=== PATIENT | male | born 1980 | race Caucasian/White ===

== ENCOUNTER → 2019-11-13 12:33 | Outpatient (BNVA) | payer MEDICARE, MEDICAID, SELFPAY | PROVIDERS: Family Provider Nurse Practitioner; PCP Nurse Practitioner; Visit Provider Nurse Practitioner Family | DX: R09.89 Other specified symptoms and signs involving the circulatory and respiratory systems (principal); J10.1 Influenza due to other identified influenza virus with other respiratory manifestations; R05 Cough | CPT/HCPCS: 71046; 87804 ==

== ENCOUNTER 2019-11-21 12:28 | Emergency (ER) | payer MEDICARE, MEDICAID, SELFPAY ==
[2019-11-21 12:57] VITALS: BP 106/81; PULSE 98; RESP 22; TEMP 36.6; O2SAT 98; BMI 22.5
--- NOTE | 2019-11-21 13:06 | ED_ITS ---
Entered by Feroz Carr, acting as scribe for Espinoza Cota DO HPI - Dizziness General: Chief Complaint: Dizziness Stated Complaint: DIZZY Time Seen by Provider: 11/21/19 13:07 History of Present Illness: HPI Narrative: 39 yo male presents with dizziness. Pt states that his dizziness started 4 days ago. Pt states that he just got over the flu. Pt states that he has been at home. Pt states that he was getting ready to go cut some wood and he almost fell due to being dizzy. Pt states that laying on his back, moving his head side to side and being active makes his dizziness worse. Pt states that that his blood pressure is elevated and his heart rate has been low. MD elicited complaint: dizziness PFSH ED PFSH: Statuses (acute, chronic, etc) shown below reflect problem list status as previously entered and may not be historically accurate Medical History (Updated 11/21/19 @ 15:34 by Espinoza Cota DO) Arteriosclerotic heart disease (ASHD) (Acute) Depression (Acute) Fibromyalgia (Acute) Hepatitis B (Acute) Insomnia, unspecified (Acute) Mixed hyperlipidemia (Acute) Paget disease of bone (Acute) Polyneuropathy, unspecified (Acute) Unspecified osteoarthritis, unspecified site (Acute) Surgical History (Updated 11/21/19 @ 13:14 by Feroz Carr) Hx of angioplasty (Acute) Hx of appendectomy (Acute) Hx of colonoscopy (Acute ~01/2019) Family History (Updated 11/13/19 @ 10:32 by Maria M Song LPN, RT) Family/Other CAD (coronary artery disease) Anxiety Social History Smoking and tobacco status: never smoked Quit status (tobacco): has quit using tobacco Year quit tobacco: 2017 Former quit date comment: quit chewing Alcohol intake: never Lives independently: Yes Household members: spouse Marital status: History of recent travel: No Current gender identity: Male Physical Exam Const: COMMON NORMALS: no apparent distress, average body habitus, oriented x3, no limitations, healthy appearing, alert and well nourished HENMT: COMMON NORMALS: normocephalic, head/scalp atraumatic, hearing grossly normal bilaterally, external ears normal, EAC's normal, TM's normal bilaterally, external nose normal, nasal mucous membranes and turbinates normal, moist oral mucous membranes, oropharynx normal, dentition normal and gingiva normal HEAD & SCALP: normocephalic and atraumatic NOSE: external nose normal and nasal mucous membranes and turbinates normal EXTERNAL EAR: Yes external ears normal EXTERNAL AUDITORY CANAL: EAC's normal TYMPANIC MEMBRANE: TM's normal bilaterally Eye: COMMON NORMALS: PERRL, EOMs intact bilaterally, conjunctivae normal, no scleral icterus, no papilledema, normal visual zambrano by confrontation and fundi normal bilaterally CONJUNCTIVA: Yes conjunctivae normal PUPIL: Yes PERRL DIRECT OPHTHALMOSCOPY: Yes no papilledema and Yes fundi normal bilaterally Neck/C-Spine: COMMON NORMALS: full ROM, no lymphadenopathy, supple, no meningeal signs, no JVD, thyroid normal and no carotid bruits THYROID: thyroid normal Chest: COMMONS NORMALS: inspection of chest normal and palpation of chest normal Resp: COMMON NORMALS: normal respiratory effort, no retractions, no use of accessory muscles, clear to auscultation bilaterally and percussion normal AUSCULTATION: clear to auscultation bilaterally PERCUSSION: percussion normal Cardio: COMMON NORMALS: no JVD, regular rate, regular rhythm, S1 normal heart sound, S2 normal heart sound, no gallops, no clicks, no murmurs, no rub and peripheral pulses 2+ throughout RATE: regular rate RHYTHM: regular rhythm HEART SOUNDS: S1 normal and S2 normal PERIPHERAL PULSES: pulses 2+ throughout GI: COMMON NORMALS: normal to inspection, nondistended, normoactive bowel sounds, soft to palpation, non-tender, no hepatosplenomegaly, no masses and no bruits PALPATION: Yes soft and Yes no hepatosplenomegaly : COMMON NORMALS: Yes no CVA tenderness BLADDER/KIDNEY EXAM: Yes no CVA tenderness Back/Pelvis: COMMON NORMALS: no CVA tenderness, thoracic and lumbar spine normal to inspection, no thoracic nor lumbar tenderness, thoraco-lumbar ROM normal and straight leg raise negative bilaterally Extremity: COMMON NORMALS: normal to inspection, full ROM, normal capillary refill, no joint enlargement, no clubbing, cyanosis or edema, no calf tenderness and no pedal edema Neuro: COMMON NORMALS: oriented x3 SENSORIUM/ORIENTATION: Yes alert MENINGEAL SIGNS: Yes no meningeal signs Skin: COMMON NORMALS: no rashes or lesions noted, no wounds, skin turgor normal, no jaundice, no petechiae and no mottling GENERAL SKIN EXAM: no rashes or lesions noted and turgor normal Course Vital Signs: Vital signs: Vital Signs Temperature 97.9 F 11/21/19 12:57 Pulse Rate 98 11/21/19 12:57 Respiratory Rate 22 H 11/21/19 12:57 Blood Pressure 106/81 11/21/19 12:57 Pulse Oximetry 98 11/21/19 12:57 MDM - Dizziness Lab Data: Labs: Lab Results 11/21/19 11/21/19 11/21/19 Range/Units 14:30 14:30 14:30 WBC 6.6 (4.0-10.0) 10^3/ uL RBC 4.35 (4.1-5.3) 10^6/u L Hgb 13.1 (11.7-16.6) g/dL Hct 39.9 L (42.0-52.0) % MCV 91.7 (80-94) fL MCH 30.1 (28.0-34.0) pg MCHC 32.8 (30.0-36.0) g/dL RDW 12.7 (12.1-15.1) % Plt Count 241 (130-400) 10^3/c mm MPV 9.6 (7.4-10.4) fL Neut % (Auto) 54.0 % Lymph % (Auto) 34.5 % Gates % (Auto) 7.9 % Eos % (Auto) 2.3 % Baso % (Auto) 0.8 % Neut # (Auto) 3.6 (1.8-7.7) 10^3/u L Lymph # (Auto) 2.3 (0.8-4.8) 10^3/u L Gates # (Auto) 0.5 (0.2-0.9) 10^3/u L Eos # (Auto) 0.2 (0.0-0.8) 10^3/u L Baso # (Auto) 0.1 (0.0-0.1) 10^3/u L Nucleated RBC % (a uto) 0 % Nucleated RBCs # 0.0 /100WBC Sodium 135 L (136-145) mmol/L Potassium 4.1 (3.5-5.1) mmol/L Chloride 99 (98-107) mmol/L Carbon Dioxide 27 (22-29) mmol/L Anion Gap 13.1 (5-19) BUN 14 (6-20) mg/dL Creatinine 0.9 (0.7-1.2) mg/dL GFR Calculation 93.0 (90-130) mL/min Glucose 109 (74-109) mg/dL Lactate 1.0 (0.5-2.2) mmol/L Calcium 9.2 (8.5-10.5) mg/dL Total Bilirubin 0.3 (0.15-1.2) mg/dL AST 25 (0-40) U/L ALT 34 (0-41) U/L Alkaline Phosphata se 75 (40-130) IU/L Troponin T Baselin e (0-15) ng/mL Total Protein 6.9 (6.6-8.7) g/dL Albumin 3.9 (3.5-5.2) g/dL Globulin 3.0 (1.3-4.6) g/dL 11/21/19 Range/Units 14:30 WBC (4.0-10.0) 10^3/ uL RBC (4.1-5.3) 10^6/u L Hgb (11.7-16.6) g/dL Hct (42.0-52.0) % MCV (80-94) fL MCH (28.0-34.0) pg MCHC (30.0-36.0) g/dL RDW (12.1-15.1) % Plt Count (130-400) 10^3/c mm MPV (7.4-10.4) fL Neut % (Auto) % Lymph % (Auto) % Gates % (Auto) % Eos % (Auto) % Baso % (Auto) % Neut # (Auto) (1.8-7.7) 10^3/u L Lymph # (Auto) (0.8-4.8) 10^3/u L Gates # (Auto) (0.2-0.9) 10^3/u L Eos # (Auto) (0.0-0.8) 10^3/u L Baso # (Auto) (0.0-0.1) 10^3/u L Nucleated RBC % (a uto) % Nucleated RBCs # /100WBC Sodium (136-145) mmol/L Potassium (3.5-5.1) mmol/L Chloride (98-107) mmol/L Carbon Dioxide (22-29) mmol/L Anion Gap (5-19) BUN (6-20) mg/dL Creatinine (0.7-1.2) mg/dL GFR Calculation (90-130) mL/min Glucose (74-109) mg/dL Lactate (0.5-2.2) mmol/L Calcium (8.5-10.5) mg/dL Total Bilirubin (0.15-1.2) mg/dL AST (0-40) U/L ALT (0-41) U/L Alkaline Phosphata se (40-130) IU/L Troponin T Baselin e 6 (0-15) ng/mL Total Protein (6.6-8.7) g/dL Albumin (3.5-5.2) g/dL Globulin (1.3-4.6) g/dL Discharge Plan Discharge Clinical Impression: Acute vestibular neuronitis Qualifiers: Laterality: bilateral Qualified Code(s): H81.23 - Vestibular neuronitis, bilateral Acute labyrinthitis Qualifiers: Laterality: bilateral Qualified Code(s): H83.03 - Labyrinthitis, bilateral Condition: Stable Prescriptions: New meclizine 25 mg tablet 25 mg PO QID PRN (Reason: dizziness) Qty: 20 RF: 0 ondansetron 4 mg tablet,disintegrating 4 mg PO Q8H 4 Days Qty: 12 RF: 0 No Action isosorbide mononitrate 10 mg tablet 10 mg PO DAILY RF: 0 metoprolol succinate 25 mg tablet extended release 24 hr 12.5 mg PO QDAY RF: 0 oxycodone 30 mg tablet 30 mg PO Q4H PRNRF: 0 sumatriptan 20 mg/actuation spray,non-aerosol 20 mg INTRANASAL Q2H PRNRF: 0 alprazolam [Xanax XR] 1 mg tablet extended release 24 hr 1 mg PO TID PRNRF: 0 aspirin 325 mg tablet 325 mg PO QDAY RF: 0 multivitamin [Daily Multi-Vitamin] Tablet 1 tab PO QAM RF: 0 nitroglycerin [Nitrostat] 0.4 mg tablet, sublingual 0.4 mg SUBLINGUAL Q5M PRNRF: 0 oseltamivir [Tamiflu] 75 mg capsule 75 mg PO BID Qty: 10 RF: 0 clopidogrel 75 mg tablet 75 mg PO DAILY 30 Days Qty: 30 RF: 6 Discharge Orders: Discharge Order (Routine); Ordered 11/21/19 Ordered By: Espinoza Cota Referrals: Edward Wade, MECHANICAL DESIGN ENGINEER FACILITIES-C [Primary Care Provider] - Coding Level of Care Code ED All Purpose Clerk for Chg Fwd Exam Problem Focused The documentation recorded by the Bruno briceno Kialy, accurately reflects the service I personally performed and the decisions made by Cipriano alexander Donald P, Nov 21, 2019 12:28
--- NOTE | 2019-11-21 13:17 | CT_ITS ---
WS: [id number] CT scan of the head, 11/21/2019 Clinical Data: vertigo Comparison: None. DLP: 847.[address] scans at [facility] use at least one of these dose optimization techniques: automat ed exposure control; mA and/or kV adjustment per patient size (includes targeted exams where dose is matched to clinical indication); or iterative reconstruction. Findings: The ventricular system is normal without shift. No recent infarct or hemorrhage is seen. There are no abnormal intracerebral masses. The cerebellum and brainstem are not remarkable. Bony windows of the skull and skull base show no fractures or erosions. The mastoid air cells, internet marketing intern al auditory canals, sella turcica, intraorbital contents, and paranasal sinuses are unremarkable. CT/CT head wo con* [id number] Impression: Negative CT scan of the head
--- NOTE | 2019-11-21 13:19 | ECG_ITS ---
Measurements Intervals [place] Rate: 52 P: 56 MD: 183 QRS: 36 QRSD: 92 T: 29 QT: 382 QTc: 356 SINUS BRADYCARDIA No previous ECG available for comparison Electronically Signed On 11-21-2019 17:36:33 MAINSPRING STRIP GAUGER by Jayro Loja M.D. [email or web address]
--- NOTE | 2019-11-21 13:20 | CT_ITS ---
WS: [id number] CTA scan of the head and neck. Additional two-dimensional coronal and sagittal reconstruction along w ith MIP images was performed. 11/21/2019 Clinical Data: vertigo Comparison: None. DLP: 2177.[address] scans at [facility] use at least one of these dose optimization techniques: automat ed exposure control; mA and/or kV adjustment per patient size (includes targeted exams where dose is matched to clinical indication); or iterative reconstruction. Findings: The carotid arteries bifurcate normally into the internal carotid arteries. There is no lymphadenopat hy within the neck. The intracerebral circulation shows that the internal carotid arteries bifurcate into the anterior and middle cerebral arteries. The basilar arterial system is normal. No aneurysms a re seen. There is no prevertebral soft tissue swelling. The bones of the cervical spine and skull demonstrate no erosions. The intraorbital contents, paranasal sinuses, internal auditory canals and sella turcica are normal with incidental mucosal thickening of the right maxillary sinus.. The parotid glands are normal. The parapharyngeal areas are unremarkable. The larynx is symmetrical. The thyroid gland shows normal enhancement. The lung apices are unremarkable. CT/CT angio headneck* [id number] Impression: 1. Negative CT angiogram of the carotid, vertebral and jugular venous systems o f the neck. 2. Negative intracerebral circulation.
[2019-11-21] MEDS: iohexol 350 mg/mL 100 mL Btl IV (14:11)
[2019-11-21] MEDS: sodium chloride 0.9% 1,000 ML 999 ML IV (14:24)
[2019-11-21 14:34] LABS: Basophils # 0.1 10^3/uL (0.0-0.1); Basophils % 0.8 %; Eosinophils # 0.2 10^3/uL (0.0-0.8); Eosinophils % 2.3 %; Hematocrit 39.9 % (42.0-52.0); Hemoglobin 13.1 g/dL (11.7-16.6); Lymphocytes # 2.3 10^3/uL (0.8-4.8); Lymphocytes % 34.5 %; Mean Corpuscular HGB Conc 32.8 g/dL (30.0-36.0); Mean Corpuscular Hemoglobin 30.1 pg (28.0-34.0); Mean Corpuscular Volume 91.7 fL (80-94); Mean Platelet Volume 9.6 fL (7.4-10.4); Monocytes # 0.5 10^3/uL (0.2-0.9); Monocytes % 7.9 %; Neutrophils # 3.6 10^3/uL (1.8-7.7); Nucleated Red Blood Cells % 0 %; Platelet Count 241 10^3/cmm (130-400); Red Blood Count 4.35 10^6/uL (4.1-5.3); Red Cell Distribution Width 12.7 % (12.1-15.1); White Blood Count 6.6 10^3/uL (4.0-10.0)
[2019-11-21 14:59] LABS: Alanine Aminotransferase 34 U/L (0-41); Albumin Level 3.9 g/dL (3.5-5.2); Alkaline Phosphatase 75 IU/L (40-130); Anion Gap 13.1 (5-19); Aspartate Amino Transferase 25 U/L (0-40); Blood Urea Nitrogen 14 mg/dL (6-20); Calcium 9.2 mg/dL (8.5-10.5); Carbon Dioxide 27 mmol/L (22-29); Chloride 99 mmol/L (98-107); Glucose 109 mg/dL (74-109); Potassium 4.1 mmol/L (3.5-5.1); Sodium 135 mmol/L (136-145); Total Bilirubin 0.3 mg/dL (0.15-1.2); Total Protein 6.9 g/dL (6.6-8.7)
[2019-11-21 15:00] LABS: Troponin(5th) Baseline 6 ng/mL (0-15)
--- NOTE | 2019-11-21 15:19 | ECG_ITS ---
Measurements Intervals [place] Rate: 41 P: 115 WI: 173 QRS: 124 QRSD: 91 T: 147 QT: 441 QTc: 368 SINUS BRADYCARDIA ARM LEADS REVERSED [INVERTED P AND QRS IN I] No previous ECG available for comparison Electronically Signed On 11-21-2019 17:37:40 DENTAL HYGIENIST MOBILE COORDINATOR by Jayro Loja M.D. [email or web address]
[2019-11-21 16:12] VITALS: BP 128/78; PULSE 78; RESP 15; O2SAT 95
== END 2019-11-21 16:13 | disposition home or self-care (01) ==
PROVIDERS: Emergency Provider Family Medicine; Family Provider Nurse Practitioner; PCP Nurse Practitioner
DX: H81.23 Vestibular neuronitis, bilateral (principal); H83.03 Labyrinthitis, bilateral; Z79.02 Long term (current) use of antithrombotics/antiplatelets; Z79.82 Long term (current) use of aspirin; Z86.19 Personal history of other infectious and parasitic diseases; E78.2 Mixed hyperlipidemia; Z87.891 Personal history of nicotine dependence
CPT/HCPCS: 70450; 70496; 70498; 80053; 83605; 84484; 85025; 93005; 96360; 99282; J7030; Q9967

== ENCOUNTER 2019-12-20 13:59 | Outpatient (CLI) | payer MEDICARE, MEDICAID, SELFPAY ==
--- NOTE | 2019-12-20 14:15 | USCV_ITS ---
Rocky Jaeger Jr Age: 39 Gender: M : 1980 Exam Date: 12/20/2019 14:35 Ordering Phys: Gyale Ravi Technologist: Curtis Clayton Exam Location: [facility] [place] Indication: BILAT LEG PAIN AND SWELLING HISTORY: Lower extremity swelling. Lower extremity edema. PROCEDURES: The venous duplex Doppler examination of both lower extremities was performed in the standard fashion. The following venous structures were evaluated: common femoral vein, profunda vein, proximal portion of the greater saphenous vein, superficial femoral vein, and the popliteal vein. In addition, the posterior tibial and peroneal trunk were evaluated. Bilaterally, the common femoral, superficial femoral, profunda femoral, popliteal, posterior tibial, greater saphenous veins, and the peroneal trunk were identified and interrogated in the standard fashion. These veins were found to be easily compressible with spontaneous blood flow. No evidence of insufficiency or thrombus noted. FINDINGS: Normal 2-D Doppler and augmentation and compressibility throughout the lower extremity venous structures. Additional imaging through the proximal calf veins also reveals no thrombus. Limited evaluation of the greater saphenous vein is patent with no thrombus.. CONCLUSIONS No evidence of right lower extremity DVT. No evidence of left lower extremity DVT. Kehinde Butterfield MD (Electronically Signed) Final Date: 20 December 2019 15:54 S
== END 2019-12-20 14:00 | disposition home or self-care (01) ==
LOC: RAD 14:04
PROVIDERS: Family Provider Nurse Practitioner; PCP Nurse Practitioner; Visit Provider Nurse Practitioner Family
DX: I73.9 Peripheral vascular disease, unspecified (principal); M79.605 Pain in left leg; M79.604 Pain in right leg; M79.89 Other specified soft tissue disorders
CPT/HCPCS: 93970

== ENCOUNTER 2020-08-13 10:05 | Outpatient (CLI) | payer MEDICARE, MEDICAID, SELFPAY ==
--- NOTE | 2020-08-13 11:00 | US_ITS ---
WS: [id number] Scrotal and testicular ultrasound, 08/13/2020 Clinical Data: Left scrotal/testicular pain Comparison: None. Findings: The right testes measures 4.8 cm x 2.5 cm x 2.6 cm. There is a small right hydrocele The left testes measures 5.0 cm x 2.9 cm x 2.6 cm. There is normal bilateral blood flow with no evidence of orchitis or torsion. No masses or abnormal c alcifications are noted. Both epididymides show normal blood flow with varicose veins on both the right and the left. There is a small subcutaneous density in the left groin which may represent a seroma measuring 0.41 x 0.49 x 0.90 cm. US/US scrotum [id number] Impression: 1. Small left hypoechoic region which may relate represent a subcutaneous serom a in the left groin. 2. Normal bilateral testicles. 3. Normal bilateral epididymides with varicosities on both sides.
== END 2020-08-13 10:06 | disposition home or self-care (01) ==
LOC: RAD 10:15
PROVIDERS: PCP Nurse Practitioner; Visit Provider Dermatology
DX: N50.812 Left testicular pain (principal)
CPT/HCPCS: 76870

== ENCOUNTER → 2020-11-03 09:36 | Outpatient (BNVA) | payer MEDICARE, MEDICAID, SELFPAY | PROVIDERS: PCP Nurse Practitioner; Visit Provider Nurse Practitioner Family | DX: R10.9 Unspecified abdominal pain (principal); J40 Bronchitis, not specified as acute or chronic; R10.11 Right upper quadrant pain; K59.03 Drug induced constipation | CPT/HCPCS: 71046; 74019 ==

== ENCOUNTER 2021-08-04 13:28 | Emergency (ER) | payer MEDICARE, MEDICAID, SELFPAY ==
[2021-08-04 13:39] VITALS: BP 121/70; PULSE 75; RESP 14; TEMP 36.9; O2SAT 95; BMI 21.9
--- NOTE | 2021-08-04 13:45 | XR_ITS ---
WS: [id number] XR chest 1V portable [id number] REASON FOR EXAM: Cough FINDINGS: Mild tortuosity thoracic aorta. Normal heart size. Unusual appearance of the air in the trachea presumably is due to significant rotation of the upper c hest to the right. Calcified granulomatous disease in both hemithoraces. No active pulmonary parenchymal or pleural disease. Abnormal appearing left shoulder. Likely old posttraumatic deformity. XR/XR chest 1V portable [id number] IMPRESSION: No acute chest abnormality.
[2021-08-04 13:46] VITALS: BP 121/70; PULSE 68; O2SAT 95
--- NOTE | 2021-08-04 13:46 | W.ED.CHESTPA ---
HPI - Chest Pain General: Chief Complaint: Chest Pain Stated Complaint: CHEST PAIN Time Seen by Provider: 08/04/21 13:37 History of Present Illness: HPI narrative: This patient is a 41-year-old male who presents to the emergency department for atypical type chest pain issues. Patient states he does however have a cardiac disease and has had stents in the past. Patient states he also takes chronic pain medications including oxycodone. Patient states he got away from the house without his medications. Started having chest pain. Patient presents with atypical type complaints. Patient also is yawning appears somnolent. Reportedly patient recently was out of group home. Patient does not appear to be acutely sick. Will do medical evaluation treat as needed. MD complaint: chest pain Pertinent past history: coronary artery disease Onset (ago): minute(s) Timing of current episode: episodic Quality: aching Associated symptoms: Deny abdominal pain, dyspnea, fever(s), nausea, palpitations or vomiting Review of Systems General: Reports: 10 or more systems reviewed and unremarkable except in HPI and below Const: Denies: fever(s), chills, body aches or fatigue Eyes: Denies: change in vision or blurry vision ENMT: Denies: throat pain, hoarseness or mouth pain Card: Reports: chest pain; Denies: palpitations, irregular heart rhythm, edema, swelling of feet/ankles or lightheadedness Resp: Denies: dyspnea, productive cough, non-productive cough, wheezing or pain on inspiration GI: Denies: abdominal pain, nausea or vomiting : Denies: flank pain, dysuria, urinary frequency, urinary urgency or urinary hesitancy Musc: Denies: neck pain, back pain, extremity pain, extremity swelling, joint pain, joint swelling, joint redness, joint warmth or limited range of motion Skin/Breast: Denies: rash, pruritus, erythema or skin tenderness Neuro: Denies: headache(s), numbness in extremities or weakness in extremities Psych: Denies: anxiety or depression PFS ED PFSH: Medical History (Updated 08/04/21 @ 15:13 by Raul Strickland MD) Arteriosclerotic heart disease (ASHD) Depression Fibromyalgia Hepatitis B Insomnia, unspecified Mixed hyperlipidemia Paget disease of bone Polyneuropathy, unspecified Unspecified osteoarthritis, unspecified site Surgical History Hx of angioplasty Hx of appendectomy Hx of colonoscopy (~01/2019) Family History Family/Other CAD (coronary artery disease) Anxiety Social History Smoking and tobacco status: former smoker Quit status (tobacco): has quit using tobacco Year quit tobacco: 2016 Former quit date comment: quit chewing Alcohol intake: never Lives independently: Yes Household members: spouse Marital status: History of recent travel: No Current gender identity: Male Physical Exam Const: COMMON NORMALS: no acute distress, average body habitus, patient oriented x3, no limitations, healthy appearing, alert and well nourished HENMT: COMMON NORMALS: normocephalic, atraumatic, hearing grossly normal bilaterally, external ears normal, EAC's normal, TM's normal bilaterally, Normal external nose present, Normal nasal mucous membranes and turbinates present, moist oral mucous membranes, oropharynx normal, dentition normal and gingiva normal HEAD & SCALP: normocephalic and atraumatic NOSE: Normal external nose present and Normal nasal mucous membranes and turbinates present EXTERNAL EAR: Yes external ears normal EXTERNAL AUDITORY CANAL: EAC's normal TYMPANIC MEMBRANE: TM's normal bilaterally Neck/C-Spine: COMMON NORMALS: full ROM, no lymphadenopathy, supple, no meningeal signs, no JVD, Thyroid normal and No carotid bruits THYROID: Thyroid normal Chest: COMMONS NORMALS: normal inspection of the chest, normal palpation of entire chest wall, normal inspection of the breasts and normal palpation of the breasts Breast/axilla inspection: Yes normal inspection of the breasts BREAST/AXILLA PALPATION: Yes normal palpation of the breasts Resp: COMMON NORMALS: normal respiratory effort, No retractions, No use of accessory muscles, clear to auscultation bilaterally and percussion normal AUSCULTATION: clear to auscultation bilaterally PERCUSSION: percussion normal Cardio: COMMON NORMALS: no JVD, regular rate, regular rhythm, S1 normal heart sound present, S2 normal heart sound present, No gallops present (Cardio), No clicks present (Cardio), No murmurs present (Cardio), No rub (Cardio) and Peripheral pulses 2+ throughout RATE: regular rate RHYTHM: regular rhythm HEART SOUNDS: S1 normal heart sound present and S2 normal heart sound present PERIPHERAL PULSES: Peripheral pulses 2+ throughout GI: COMMON NORMALS: Normal to inspection, nondistended, normoactive bowel sounds present, Soft to palpation, non-tender, No hepatosplenomegaly present, no masses and no bruits PALPATION: Yes Soft to palpation and Yes No hepatosplenomegaly present : COMMON NORMALS: Yes no CVA tenderness BLADDER/KIDNEY EXAM: Yes no CVA tenderness Back/Pelvis: COMMON NORMALS: no CVA tenderness, thoracic and lumbar spine normal to inspection, no thoracic nor lumbar tenderness, thoraco-lumbar ROM normal and straight leg raise negative bilaterally Extremity: COMMON NORMALS: normal to inspection, full ROM, capillary refill normal, no joint enlargement, no clubbing, cyanosis or edema, no calf tenderness and no pedal edema Neuro: COMMON NORMALS: patient oriented x3 SENSORIUM/ORIENTATION: Yes alert MENINGEAL SIGNS: Yes no meningeal signs Course Reevaluation(s): Reevaluation #1: Negative evaluation in the emergency department. Patient be discharged home advised to follow-up with his primary care physician and continue all home medications. Time: 15:12 Vital Signs: Vital signs: Vital Signs Temperature 98.5 F 08/04/21 13:39 Pulse Rate 68 08/04/21 13:46 Respiratory Rate 14 08/04/21 13:39 Blood Pressure 121/70 08/04/21 13:46 Pulse Oximetry 95 08/04/21 13:46 MDM - Chest Pain MDM Narrative: Medical decision making narrative: This patient is a 41-year-old male who presents to the emergency department for atypical type chest pain issues. Patient states he does however have a cardiac disease and has had stents in the past. Patient states he also takes chronic pain medications including oxycodone. Patient states he got away from the house without his medications. Started having chest pain. Patient presents with atypical type complaints. Patient also is yawning appears somnolent. Reportedly patient recently was out of group home. Patient does not appear to be acutely sick. Will do medical evaluation treat as needed. Negative evaluation in the emergency department. Patient be discharged home advised to follow-up with his primary care physician and continue all home medications. Lab Data: Labs: Lab Results 08/04/21 08/04/21 08/04/21 13:56 13:56 13:57 WBC 7.5 10^3/uL 10^3/ uL (4.0-10.0) RBC 4.30 10^6/uL 10^6 /uL (4.1-5.3) Hgb 13.3 g/dL g/dL (11.7-16.6) Hct 40.7 % L % (42.0-52.0) MCV 94.7 fl H fl (80-94) MCH 30.9 pg pg (28.0-34.0) MCHC 32.7 g/dL g/dL (30.0-36.0) RDW 13.5 % % (12.1-15.1) Plt Count 270 10^3/cmm 10^3 /cmm (130-400) MPV 9.8 fL fL (7.4-10.4) Neut % (Auto) 74.4 % % Lymph % (Auto) 18.7 % % [place] % (Auto) 5.9 % % Eos % (Auto) 0.1 % % Baso % (Auto) 0.5 % % Neut # (Auto) 5.57 10^3/uL 10^3 /uL (1.8-7.7) Lymph # (Auto) 1.4 10^3/uL 10^3/ uL (0.8-4.8) [place] # (Auto) 0.4 10^3/uL 10^3/ uL (0.2-0.9) Eos # (Auto) 0.0 10^3/uL 10^3/ uL (0.0-0.8) Baso # (Auto) 0.0 10^3/uL 10^3/ uL (0.0-0.1) Nucleated RBC % (a uto) 0 % % Nucleated RBCs # 0.0 /100WBC /100W BC PT INR APTT Sodium Potassium Chloride Carbon Dioxide Anion Gap BUN Creatinine GFR Calculation Glucose Calculated Osmolal ity Calcium Total Bilirubin AST ALT Alkaline Phosphata se Troponin T Gen 5 n g/L NT-Pro-B Natriuret Pep Total Protein Albumin Globulin Urine Color Yellow (Yellow) Urine Appearance Clear (CLEAR) Urine pH 8 H (5-7) Ur Specific Gravit y 1.015 (1.005-1.030) Urine Protein Neg (Negative) Urine Glucose (UA) Norm (Normal) Urine Ketones Negative (Negative) Urine Blood Neg (Negative) Urine Nitrate Negative (Negative) Urine Bilirubin Neg (Negative) Prot Sulfosalicyli c Acd Negative (Negative) Urine Urobilinogen Norm mg/dL mg/dL (Negative) Ur Leukocyte Barb ase Negative (Negative) Urine Opiates Scre en Negative ng/mL ng /mL (Negative) Ur Barbiturates Sc reen Negative ng/mL ng /mL (Negative) Ur Phencyclidine S crn Negative ng/mL ng /mL (Negative) Ur Amphetamines Sc reen Negative ng/mL ng /mL (Negative) U Benzodiazepines Scrn Positive ng/mL H ng/mL (Negative) Urine Cocaine Scre en Negative ng/mL ng /mL (Negative) U Marijuana (THC) Screen Negative ng/mL ng /mL (Negative) Ethyl Alcohol 08/04/21 08/04/21 08/04/21 13:57 13:57 13:57 WBC RBC Hgb Hct MCV MCH MCHC RDW Plt Count MPV Neut % (Auto) Lymph % (Auto) [place] % (Auto) Eos % (Auto) Baso % (Auto) Neut # (Auto) Lymph # (Auto) [place] # (Auto) Eos # (Auto) Baso # (Auto) Nucleated RBC % (a uto) Nucleated RBCs # PT 14.00 SECONDS SEC ONDS (12.1-14.9) INR 1.05 (0.8-1.2) APTT 86.4 SECONDS H SE CONDS (23.9-36.7) Sodium 139 mmol/L mmol/L (136-145) Potassium 4.2 mmol/L mmol/L (3.5-5.1) Chloride 103 mmol/L mmol/L (98-107) Carbon Dioxide 26 mmol/L mmol/L (22-29) Anion Gap 14.2 (5-19) BUN 9 mg/dL mg/dL (6-20) Creatinine 0.6 mg/dL L mg/dL (0.7-1.2) GFR Calculation 147.0 mL/min H mL /min (90-130) Glucose 108 mg/dL mg/dL (65-115) Calculated Osmolal ity 287 mOsm/kg mOsm/ kg (285-295) Calcium 9.5 mg/dL mg/dL (8.5-10.5) Total Bilirubin 0.3 mg/dL mg/dL (0.15-1.2) AST 17 U/L U/L (0-40) ALT 18 U/L U/L (0-41) Alkaline Phosphata se 71 IU/L IU/L (40-130) Troponin T Gen 5 n g/L 6 ng/L ng/L (0-15) NT-Pro-B Natriuret Pep 130 pg/mL H pg/mL (0-125) Total Protein 6.9 g/dL g/dL (6.6-8.7) Albumin 4.2 g/dL g/dL (3.5-5.2) Globulin 2.7 g/dL g/dL (1.3-4.6) Urine Color Urine Appearance Urine pH Ur Specific Gravit y Urine Protein Urine Glucose (UA) Urine Ketones Urine Blood Urine Nitrate Urine Bilirubin Prot Sulfosalicyli c Acd Urine Urobilinogen Ur Leukocyte Barb ase Urine Opiates Scre en Ur Barbiturates Sc reen Ur Phencyclidine S crn Ur Amphetamines Sc reen U Benzodiazepines Scrn Urine Cocaine Scre en U Marijuana (THC) Screen Ethyl Alcohol < 10 mg/dL mg/dL (0-10) Imaging Data^: CXR: Attestation: I personally reviewed and interpreted this imaging study as follows: Radiologist's impression: IMPRESSION: No acute chest abnormality. Discharge Plan Discharge Patient Disposition: Home Clinical Impression: Atypical chest pain Condition: Stable Prescriptions: No Action oxycodone 30 mg tablet 30 mg PO Q4H PRNRF: 0 aspirin 325 mg tablet 325 mg PO QDAY RF: 0 multivitamin [Daily Multi-Vitamin] Tablet 1 tab PO QAM RF: 0 alprazolam [Xanax XR] 1 mg tablet extended release 24 hr 1 mg PO DAILY PRNRF: 0 nitroglycerin [Nitrostat] 0.4 mg tablet, sublingual 0.4 mg SUBLINGUAL Q5M PRN (Reason: chest pain) Qty: 25 RF: 6 metoprolol tartrate 25 mg tablet 12.5 mg PO BID Qty: 90 RF: 3 clopidogrel 75 mg tablet 75 mg PO DAILY Qty: 90 RF: 3 mupirocin 2 % ointment 1 applic TOPICAL BID Qty: 22 RF: 1 Golytely 227.1-21.5-6.36 gram powder in packet 240 ml PO Q1H Qty: 1 RF: 0 amoxicillin-pot clavulanate [Augmentin] 875-125 mg tablet 1 tab PO BID 10 Days Qty: 20 RF: 0 docusate sodium [Dulcolax Stool Softener (dss)] 100 mg capsule 100 mg PO DAILY Qty: 30 RF: 0 Discharge Orders: Discharge ED (Routine); Ordered 08/04/21 Ordered By: Raul Strickland Referrals: Edward Wade, [facility] [Primary Care Provider] - Discharge Diet: Advance as tolerated Discharge Activity: Resume usual activity Patient Instructions: Opioid Safety Activity Restrictions/Additional Instructions: Negative evaluation in the emergency department for any acute findings. You need to continue all home medications. Follow-up with your primary care physician and electroencephalogram technologist as instructed. Coding Level of Care Code ED Surgical Sales Representative for Aidan Fwmichaela Exam Comprehensive
[2021-08-04 14:15] LABS: Basophils % 0.5 %; Eosinophils % 0.1 %; Hematocrit 40.7 % (42.0-52.0); Hemoglobin 13.3 g/dL (11.7-16.6); Lymphocytes # 1.4 10^3/uL (0.8-4.8); Lymphocytes % 18.7 %; Mean Corpuscular HGB Conc 32.7 g/dL (30.0-36.0); Mean Corpuscular Hemoglobin 30.9 pg (28.0-34.0); Mean Corpuscular Volume 94.7 fl (80-94); Mean Platelet Volume 9.8 fL (7.4-10.4); Monocytes # 0.4 10^3/uL (0.2-0.9); Monocytes % 5.9 %; Neutrophils # 5.57 10^3/uL (1.8-7.7); Neutrophils % 74.4 %; Nucleated Red Blood Cells % 0 %; Platelet Count 270 10^3/cmm (130-400); Red Cell Distribution Width 13.5 % (12.1-15.1); White Blood Count 7.5 10^3/uL (4.0-10.0)
[2021-08-04 14:20] LABS: Add Urine Microscopic? NO; Charge for UA Resulting for Rev
[2021-08-04 14:31] LABS: Bilirubin Urine Neg (Negative); Blood Urine Neg (Negative); Glucose Urine UA Norm (Normal); Ketones Urine Negative (Negative); Leukocyte Esterase Urine Negative (Negative); Nitrate Urine Negative (Negative); Protein Urine Neg (Negative); Specific Gravity, Urine 1.015 (1.005-1.030); Sulfosalicylic Acid Urine Negative (Negative); Urine Appearance Clear (CLEAR); Urine Color Yellow (Yellow); Urobilinogen Urine Norm (Negative); pH Urine 8 (5-7)
[2021-08-04 14:34] LABS: INR 1.05 (0.8-1.2)
[2021-08-04 14:38] LABS: Amphetamines Screen Urine Negative (Negative); Barbiturates Screen Urine Negative (Negative); Benzodiazepines Screen Urine Positive (Negative); Cocaine Screen Urine Negative (Negative); Opiate Screen Urine Negative (Negative); PCP Screen Urine Negative (Negative); THC Screen Urine Negative (Negative)
[2021-08-04 14:43] LABS: Partial Thromboplastin Time 86.4 SECONDS (23.9-36.7)
[2021-08-04 14:47] LABS: Troponin T (5th) Once 6 ng/L (0-15)
[2021-08-04 14:54] LABS: Alanine Aminotransferase 18 U/L (0-41); Albumin Level 4.2 g/dL (3.5-5.2); Alkaline Phosphatase 71 IU/L (40-130); Anion Gap 14.2 (5-19); Aspartate Amino Transferase 17 U/L (0-40); Blood Urea Nitrogen 9 mg/dL (6-20); Calcium 9.5 mg/dL (8.5-10.5); Carbon Dioxide 26 mmol/L (22-29); Chloride 103 mmol/L (98-107); Globulin 2.7 g/dL (1.3-4.6); Glucose 108 mg/dL (65-115); NT Pro B Type Natriuretic Pept 130 pg/mL (0-125); Osmolality Calculated 287 mOsm/kg (285-295); Potassium 4.2 mmol/L (3.5-5.1); Sodium 139 mmol/L (136-145); Total Bilirubin 0.3 mg/dL (0.15-1.2); Total Protein 6.9 g/dL (6.6-8.7)
[2021-08-04 14:59] LABS: Alcohol Level < 10 mg/dL (0-10)
== END 2021-08-04 15:22 | disposition home or self-care (01) ==
PROVIDERS: Emergency Provider Emergency Medicine; PCP Nurse Practitioner
DX: Z79.82 Long term (current) use of aspirin (principal); Z79.02 Long term (current) use of antithrombotics/antiplatelets; E78.2 Mixed hyperlipidemia; Z87.891 Personal history of nicotine dependence
CPT/HCPCS: 71045; 80053; 80306; 80307; 81003; 83880; 84484; 85025; 85610; 85730; 99283

== ENCOUNTER 2021-09-09 08:10 | Outpatient (CLI) | payer MEDICARE, MEDICAID, SELFPAY ==
--- NOTE | 2021-09-09 09:26 | ECG_ITS ---
[facility] Test Date: 2021-09-09 Pat Name: Rocky Jaeger Jr Department: Room: Gender: Male Audiology Doctor: Ivanna Morataya : 1980 Requested By: Gayle Ravi Order Number: [id number] Carole MD: Onel Ball M.D. Interpretive Statements NAME OF STUDY: LEXISCAN SESTAMIBI STRESS TEST INDICATION: Chest Pain, PROCEDURE: At the baseline, the EKG revealed sinus bradycardia with a rate of [address] Ts. The baseline blood pressure was 108/64 mm Hg with a heart rate of 50 beats/min. Lexiscan was infused over a period of 20 seconds. A total of 0.4 milligrams of Lexiscan was infused. The stress phase was continued for a total of 5 minutes. Heart rate at the end of the stress phase was 69 with a blood pressure 109/65. The EKG at the peak infusion revealed no significant changes. Sestamibi was injected 20 seconds after the Lexiscan infusion. Blood pressure at the end of the recovery phase was 107/61 with a heart rate of 63 per minute. CONCLUSION: 1. No significant EKG changes with the LexiScan infusion 2. No LexiScan induced chest pain or cardiac arrhythmia 3. Normal blood pressure and heart rate response 4. Sestamibi/sestamibi perfusion scan pending; see separate report. Electronically Signed On 09-12-2021 21:13:01 ASSISTANT ACCOUNT EXECUTIVE by Onel Ball M.D. [email or web address]
--- NOTE | 2021-09-09 09:26 | NMCV_ITS ---
NM aixa perf SPECT r/s* [id number] Rocky Jaeger Jr Age: 41 Gender: M : 1980 Exam Date: 09/09/2021 09:24 Ordering Phys: Gayle Ravi Technologist: LORI Hill Exam Location: [facility] Indications: ASHD STRESS TEST Please see separate stress test report in [facility] for full findings IMAGE PROTOCOL Rest/Stress 1 Lexiscan Day Radiopharmaceutical Dose (mCi) Administration Site Administered by Rest: Tc-99m 10.5 IV LORI Watkins Sestamibi Stress:Tc-99m 32.7 IV LORI Hill Sestamichaz Rest: 09-Sep-2021 60 Discovery 630 Stress: 09-Sep-2021 30 Discovery 630 0.4mg Lexiscan. Images obtained in supine and prone position. SPECT RESULTS Technical Quality: Excellent Raw Data Analysis: Normal Image Corrections: No attenuation or motion correction applied Summed Stress Score: 1 Summed Rest Score: 0 Summed Difference Score: 1 PERFUSION FINDINGS A small area of slightly decreased tracer uptake in the apical lateral region with complete reversibility. FUNCTIONAL RESULTS (calculated via Gated SPECT) Stress Image LV EF (%): 65 Stress EDV (mL):137 TID: 1.04 Stress ESV (mL):48 FUNCTIONAL FINDINGS: Segmental wall motion analysis revealing no gross wall motion normalities. IMPRESSIONS 1. Myocardial perfusion imaging revealing a small area of slightly decreased tracer uptake in the apical lateral region with complete reversibility, suggesting ischemia in the distribution of the left circumflex artery. 2. Normal LV ejection fraction of 65%. 3. LV wall motion analysis revealing no gross wall motion abnormalities. 4. Slightly elevated LV cavity with an end-systolic volume of 48 mL Compared to the study from 02/12/2019, this area of ischemia appears to be new. Clinical correlation is recommended Dr Onel Ball MD [facility] (Electronically Signed) Final Date: 10 September 2021 06:24 S
[2021-09-09 09:29] VITALS: BMI 32.8
[2021-09-09] MEDS: regadenoson 0.4 Mg/5 ml Syringe IVP (10:03)
[2021-09-09 10:04] VITALS: BP 111/68; PULSE 71
== END 2021-09-09 08:11 | disposition home or self-care (01) ==
LOC: CDL 08:13
PROVIDERS: PCP Nurse Practitioner; Visit Provider Nurse Practitioner Family
DX: R07.9 Chest pain, unspecified (principal); I25.10 Atherosclerotic heart disease of native coronary artery without angina pectoris
CPT/HCPCS: 78452; 93017; A9500; J2785

== ENCOUNTER → 2021-11-30 12:10 | Outpatient (BNVA) | payer MEDICARE, MEDICAID, SELFPAY | PROVIDERS: PCP Nurse Practitioner; Visit Provider Nurse Practitioner Family | DX: J02.9 Acute pharyngitis, unspecified (principal) | CPT/HCPCS: 87071; 87880 ==

== ENCOUNTER → 2022-03-22 14:48 | Outpatient (BNVA) | payer MEDICARE, MEDICAID, SELFPAY | PROVIDERS: PCP Nurse Practitioner; Referring Provider Nurse Practitioner Family; Visit Provider Otolaryngology | DX: R13.10 Dysphagia, unspecified (principal); K21.00 Gastro-esophageal reflux disease with esophagitis, without bleeding; Z87.891 Personal history of nicotine dependence | CPT/HCPCS: 31575; 99203; 99204 ==

== ENCOUNTER → 2022-04-16 14:10 | Outpatient (BNVA) | payer MEDICARE, MEDICAID, SELFPAY | PROVIDERS: PCP Nurse Practitioner; Visit Provider Registered Nurse Neonatal Intensive Care | DX: J02.0 Streptococcal pharyngitis (principal); J01.10 Acute frontal sinusitis, unspecified | CPT/HCPCS: 87880 ==

== ENCOUNTER → 2022-05-20 11:42 | Outpatient (BNVA) | payer MEDICARE, MEDICAID, SELFPAY | PROVIDERS: PCP Nurse Practitioner; Visit Provider Otolaryngology | DX: R13.10 Dysphagia, unspecified (principal); K21.00 Gastro-esophageal reflux disease with esophagitis, without bleeding; R10.11 Right upper quadrant pain; Z87.891 Personal history of nicotine dependence | CPT/HCPCS: 99213 ==

== ENCOUNTER 2022-07-21 07:31 | Outpatient (CLI) | payer MEDICARE, MEDICAID, SELFPAY ==
--- NOTE | 2022-07-21 08:15 | FL_ITS ---
WS: [id number] Swallowing function at the level of the oropharynx was normal. No sign of esophageal stricture or mas s. A small outpocketing of barium is noted Exam: FL barium swallow [id number] Date/Time of Exam: 07/21/2022 8:15 AM Reason For Exam: Fluoroscopy time: 1min [id number] minutes # of spot films: Swallowing function at the level of oropharynx was normal. No sign of esophageal stricture or mass. A 4.4 mm outpocketing of barium is seen along the left margin of the lower esophagus and could represe nt a small ulcer or diverticulum. Esophageal motility was normal. No reflux was observed. No hiatal h ernia. The esophagus was not displaced. FL/FL barium swallow [id number] IMPRESSION: 1. 4.4 mm outpocketing of barium along the left lateral margin of the lower eso phagus that may represent an ulcer or small diverticulum. 2. No esophageal stricture or mass identified.
== END 2022-07-21 07:32 | disposition home or self-care (01) ==
LOC: RAD 07:33
PROVIDERS: PCP Nurse Practitioner; Visit Provider Otolaryngology
DX: R13.10 Dysphagia, unspecified (principal)
CPT/HCPCS: 74220

== ENCOUNTER → 2022-08-15 16:10 | Outpatient (BNVA) | payer MEDICARE, MEDICAID, SELFPAY | PROVIDERS: PCP Nurse Practitioner; Visit Provider Otolaryngology | DX: K22.10 Ulcer of esophagus without bleeding (principal); K21.00 Gastro-esophageal reflux disease with esophagitis, without bleeding; R10.9 Unspecified abdominal pain | CPT/HCPCS: 99213 ==

== ENCOUNTER → 2022-08-16 09:10 | Outpatient (BNVA) | payer MEDICARE, MEDICAID, SELFPAY | PROVIDERS: PCP Nurse Practitioner; Visit Provider Surgery | DX: K21.9 Gastro-esophageal reflux disease without esophagitis (principal) | CPT/HCPCS: 99203 ==

== ENCOUNTER 2022-08-26 07:06 | Day surgery (SDC) | payer MEDICARE, MEDICAID, SELFPAY ==
[2022-08-23 13:59] VITALS: BMI 26.7
[2022-08-26 07:47] VITALS: BP 115/62; PULSE 69; RESP 18; TEMP 36.3; O2SAT 97
[2022-08-26] MEDS: sodium chloride 0.9% 1,000 ML 30 ML IV (07:59)
--- NOTE | 2022-08-26 08:35 | ANES.PREANE2 ---
Pre-Anesthetic Assessment Height/Weight: Height 1.93 m Weight 99.79 kg Temp Pulse Resp BP Pulse Ox O2 Del Method 97.3 F L 69 18 115/62 97 08/26/22 07:47 08/26/22 07:47 08/26/22 07:47 08/26/22 07:47 08/26/22 07:47 08/26/22 07:47 Preop Diagnosis: Abd pain Operation Date: 08/26/22 08:45 Proposed Procedures p EGD 70480,K21.9(Not Applicable) - Tommy Soto DO Familial anesthetic complications: none Was Beta Robert taken within 24 hours: N/A Was Clonidine taken within 24 hours: N/A Last intake: Intake Last Liquid Date 08/25/22 Last Liquid Time 23:59 Last Solid Date 08/25/22 Last Solid Time 23:55 Last Intake: 23:30 Social No alcohol and No tobacco Exam alert, oriented x 3, clear to auscultation bilaterally and regular rate & rhythm Airway Submandibular: within normal limits Cervical ROM: within normal limits Mallampati: Class II Dentition: full Pulmonary None reported CV/HEM Coronary Artery Disease (PTCA 10years ago. No prob since, Seen cardiology 1 year ago) and Hypertension None reported Hepatic None reported GI Gastroesophageal Reflux Disease Metabolic None reported Musc/skel Lower Back Pain and Osteoarthritis/DJD Neuropsych None reported Anesthetic Plan ASA status: 3 Anesthesia: MAC Medications/Allergies Home Medications Medication Instructions Recorded Confirmed Last Taken Type nitroglycerin 0.4 mg sublingual 0.4 mg sublingual Q5M PRN chest 08/31/20 08/23/22 1 Month Ago Rx tablet (Nitrostat) pain #25 tabs ~07/23/22 aspirin 81 mg tablet,delayed 162 mg PO DAILY 09/20/21 08/23/22 1 Week Ago History release (Adult Low Dose Aspirin) ~08/16/22 buprenorphine HCl 8 mg sublingual 2 mg sublingual BID 09/20/21 08/23/22 08/25/22 History tablet mupirocin 2 % topical ointment 1 applic topical BID PRN Itching 08/23/22 08/23/22 1 Week Ago History ~08/16/22 Allergies Allergy/AdvReac Type Severity Reaction Status Date / Time droperidol Allergy Unknown Unknown Verified 08/23/22 14:00 duloxetine [From Cymbalta] Allergy Unknown Unknown Verified 08/23/22 14:00 gabapentin [From Neurontin] Allergy Unknown Unknown Verified 08/23/22 14:00 Iodinated Contrast Media Allergy Unknown Unknown Verified 08/23/22 14:00 paroxetine [From Paxil] Allergy Unknown Unknown Verified 08/23/22 14:00 pregabalin [From Lyrica] Allergy Unknown Unknown Verified 08/23/22 14:00 sertraline [From Zoloft] Allergy Unknown Unknown Verified 08/23/22 14:00 Penicillins Allergy ALGY-Hives Verified 08/23/22 14:01 Current Medications Generic Name Dose Route Start Last Admin Trade Name Freq PRN Reason Stop Dose Admin Sodium Chloride 1,000 mls @ 30 mls/hr 08/26/22 07:30 08/26/22 07:59 Sodium Chloride 0.9% IV 08/27/22 07:29 30 mls/hr .Q24H RENZO Administration PFSH Anesthesia Medical History Arteriosclerotic heart disease (ASHD) Cyst near coccyx Depression Fibromyalgia Ganglion cyst of left groin Hepatitis B Insomnia, unspecified Mixed hyperlipidemia Paget disease of bone Polyneuropathy, unspecified Unspecified osteoarthritis, unspecified site Surgical History Hx of angioplasty Hx of appendectomy Hx of colonoscopy (~01/2019) Family History Family/Other CAD (coronary artery disease) Anxiety Social History Smoking and tobacco status: former smoker Quit status (tobacco): has quit using tobacco Year quit tobacco: 2017 Former quit date comment: quit chewing Alcohol intake: never Lives independently: Yes Household members: spouse Marital status: History of recent travel: No Current gender identity: Male Data Anesthesia Cardiac Studies: Sestamibi Stress Test (Cardiology) 09/09/21
--- NOTE | 2022-08-26 08:47 | W.PM.OPSUD ---
Surgery/Procedure H&P Update DATE OF PROCEDURE: August 26, 2022 DATE H&P PERFORMED: 08/16/22 PREOP DIAGNOSIS: Abd pain PLANNED PROCEDURE: Operation Date: 08/26/22 08:45 Proposed Procedures p EGD 13596,K21.9(Not Applicable) - Tommy Soto DO
[2022-08-26 09:03] VITALS: BP 103/73; PULSE 68; RESP 16; TEMP 36.1; O2SAT 91
[2022-08-26 09:22] VITALS: BP 117/88; PULSE 66; RESP 18; O2SAT 94
--- NOTE | 2022-08-26 15:05 | ANE.PACU2 ---
Inpatient post-anesthesia follow up: Airway intact: Yes Vital signs: Temperature 97 F Pulse Rate 66 Respiratory Rate 18 Blood Pressure 117/88 Pulse Oximetry 94 Oxygen Delivery Me thod Room Air Oxygen Flow Rate 2 Fraction of Inspir ed Oxygen Hydration adequate: Yes Nausea and vomiting: No Pain level: 1 Mental status: Baseline
== END 2022-08-26 09:33 | disposition home or self-care (01) ==
PROVIDERS: PCP Nurse Practitioner; Visit Provider Surgery
PROC: 0DJ08ZZ Inspection of Upper Intestinal Tract, Via Natural or Artificial Opening Endoscopic (ICD-10-PCS; CPT 43235; principal; 2022-08-26 08:45)
DX: K21.9 Gastro-esophageal reflux disease without esophagitis (principal); Q39.6 Congenital diverticulum of esophagus; K29.80 Duodenitis without bleeding; K29.50 Unspecified chronic gastritis without bleeding; B96.81 Helicobacter pylori [H. pylori] as the cause of diseases classified elsewhere; I25.10 Atherosclerotic heart disease of native coronary artery without angina pectoris; I10 Essential (primary) hypertension; Z79.82 Long term (current) use of aspirin; F32.A Depression, unspecified; M79.7 Fibromyalgia; E78.2 Mixed hyperlipidemia; Z87.891 Personal history of nicotine dependence
CPT/HCPCS: 43239; 76937; 88305; J7030

== ENCOUNTER → 2022-09-20 08:02 | Outpatient (BNVA) | payer MEDICARE, MEDICAID, SELFPAY | PROVIDERS: PCP Nurse Practitioner; Visit Provider Surgery | DX: K21.9 Gastro-esophageal reflux disease without esophagitis (principal); Q39.6 Congenital diverticulum of esophagus; K29.70 Gastritis, unspecified, without bleeding; B96.81 Helicobacter pylori [H. pylori] as the cause of diseases classified elsewhere | CPT/HCPCS: 99213 ==

== ENCOUNTER → 2022-10-14 15:51 | Outpatient (BNVA) | payer MEDICARE, MEDICAID, SELFPAY | PROVIDERS: PCP Nurse Practitioner; Visit Provider Registered Nurse Neonatal Intensive Care | DX: J02.9 Acute pharyngitis, unspecified (principal); J06.9 Acute upper respiratory infection, unspecified | CPT/HCPCS: 87071; 87880 ==

== ENCOUNTER → 2022-11-08 10:02 | Outpatient (BNVA) | payer MEDICARE, MEDICAID, SELFPAY | PROVIDERS: PCP Nurse Practitioner; Visit Provider Surgery | DX: K21.9 Gastro-esophageal reflux disease without esophagitis (principal); R10.12 Left upper quadrant pain; R10.13 Epigastric pain | CPT/HCPCS: 99213 ==

== ENCOUNTER → 2022-11-09 08:00 | Outpatient (BNVA) | payer MEDICARE, MEDICAID, SELFPAY | PROVIDERS: PCP Nurse Practitioner; Visit Provider Surgery | DX: R10.9 Unspecified abdominal pain (principal) | CPT/HCPCS: 87338 ==

== ENCOUNTER → 2022-11-17 14:51 | Outpatient (BNVA) | payer MEDICARE, MEDICAID, SELFPAY | PROVIDERS: PCP Nurse Practitioner; Visit Provider Surgery | DX: Z09 Encounter for follow-up examination after completed treatment for conditions other than malignant neoplasm (principal); K21.9 Gastro-esophageal reflux disease without esophagitis; Q39.6 Congenital diverticulum of esophagus | CPT/HCPCS: 99212 ==

== ENCOUNTER 2022-11-30 13:10 | Outpatient (CLI) | payer MEDICARE, MEDICAID, SELFPAY ==
--- NOTE | 2022-11-30 13:50 | XRR_ITS ---
PROCEDURE INFORMATION: Exam: XR Cervical Spine Exam date and time: 11/30/2022 1:54 PM Age: 42 years old Clinical indication: Injury or trauma; Other: Fall against door frame; Blunt trauma; Injury details: Neck pain, lt rib pain injury 1-2 months ago fell into door frame; Additional info: Neck injury TECHNIQUE: Imaging protocol: Radiologic exam of the cervical spine. Views: 2 or 3 views. COMPARISON: CT angio headneck* [id number] 11/21/2019 2:20 PM FINDINGS: Bones/joints: Normal. No acute fracture. Normal alignment. Soft tissues: Unremarkable. XR/XR cervical spine 3V* [id number] IMPRESSION: No acute findings.
--- NOTE | 2022-11-30 13:50 | XRR_ITS ---
PROCEDURE INFORMATION: Exam: XR Chest Exam date and time: 11/30/2022 1:54 PM Age: 42 years old Clinical indication: Pain and injury or trauma; Other: Fall into door frame; Blunt trauma (contusions or hematomas); Chest wall pain; Injury date: Month or 2 ago; Prior surgery; Surgery type: Heart stents, appy; Additional info: Dyspnea, rib fracture TECHNIQUE: Imaging protocol: Radiologic exam of the chest. Views: 2 views. COMPARISON: CR XR chest 1V portable [id number] 08/04/2021 1:50 PM FINDINGS: Lungs: There are calcified left hilar and lower lung nodules consistent with granulomas. There is no consolidation. Pleural spaces: There is no pleural effusion or pneumothorax. Heart/Mediastinum: Unremarkable. No cardiomegaly. Bones/joints: There are healed or healing left lateral 5th and 6th rib fractures. There is chronic deformity of the left scapula. XR/XR chest 2V* [id number] IMPRESSION: 1. No acute findings. 2. Healed or healing left rib fractures. 3. Healed fracture of the left scapula.
[2022-11-30 13:56] LABS: Basophils # 0.1 10^3/uL (0.0-0.1); Eosinophils # 0.2 10^3/uL (0.0-0.8); Eosinophils % 2.6 %; Hematocrit 46.3 % (42.0-52.0); Hemoglobin 14.7 g/dL (11.7-16.6); Lymphocytes # 1.6 10^3/uL (0.8-4.8); Lymphocytes % 28.1 %; Mean Corpuscular HGB Conc 31.7 g/dL (30.0-36.0); Mean Corpuscular Volume 100.7 fl (80-94); Mean Platelet Volume 9.3 fL (7.4-10.4); Monocytes # 0.8 10^3/uL (0.2-0.9); Monocytes % 12.9 %; Neutrophils % 54.9 %; Nucleated Red Blood Cells % 0 %; Platelet Count 238 10^3/cmm (130-400); Red Cell Distribution Width 12.9 % (12.1-15.1); White Blood Count 5.8 10^3/uL (4.0-10.0)
[2022-11-30 14:10] LABS: Alanine Aminotransferase 46 U/L (0-41); Albumin Level 4.1 g/dL (3.5-5.2); Alkaline Phosphatase 86 U/L (40-130); Blood Urea Nitrogen 11 mg/dL (6-20); Calcium 8.6 mg/dL (8.5-10.5); Carbon Dioxide 24 mmol/L (22-29); Chloride 105 mmol/L (98-107); Chol HDL Ratio 6.64 mg/dL (1.0-5.00); Cholesterol 392 mg/dL (0-200); Globulin 2.9 g/dL (1.3-4.6); Glomerular Filtration Rate 122.5 mL/min (90-130); Glucose 108 mg/dL (65-115); HDL Cholesterol 59 mg/dL (60-100); LDL Cholesterol Calculated 311 mg/dL (50-129); LDL HDL Ratio 5.27 RATIO (0.00-3.22); Osmolality Calculated 286 mOsm/kg (285-295); Sodium 138 mmol/L (136-145); Total Bilirubin 0.3 mg/dL (0.15-1.2); Triglycerides 109 mg/dL (0-150)
[2022-11-30 14:14] LABS: Anion Gap 13.5 (5-19); Aspartate Amino Transferase 40 U/L (0-40); Potassium 4.5 mmol/L (3.5-5.1)
== END 2022-11-30 13:11 | disposition home or self-care (01) ==
LOC: RAD 13:13
PROVIDERS: PCP Family Medicine; Visit Provider Family Medicine
DX: R10.13 Epigastric pain (principal); Q39.6 Congenital diverticulum of esophagus; I25.10 Atherosclerotic heart disease of native coronary artery without angina pectoris; G89.29 Other chronic pain; R06.00 Dyspnea, unspecified; M54.2 Cervicalgia; R06.02 Shortness of breath
CPT/HCPCS: 36415; 71046; 72040; 80053; 80061; 85025; 99213

== ENCOUNTER → 2022-12-08 10:14 | Outpatient (BNVA) | payer MEDICARE, MEDICAID, SELFPAY | PROVIDERS: PCP Family Medicine; Visit Provider Internal Medicine Cardiovascular Disease | DX: R94.39 Abnormal result of other cardiovascular function study (principal); I10 Essential (primary) hypertension; I25.10 Atherosclerotic heart disease of native coronary artery without angina pectoris; R06.00 Dyspnea, unspecified; E78.2 Mixed hyperlipidemia; K21.00 Gastro-esophageal reflux disease with esophagitis, without bleeding; Z87.891 Personal history of nicotine dependence | CPT/HCPCS: 99215 ==

== ENCOUNTER → 2022-12-10 12:29 | Outpatient (BNVA) | payer MEDICARE, MEDICAID, SELFPAY | PROVIDERS: PCP Family Medicine; Visit Provider Registered Nurse Neonatal Intensive Care | DX: J02.9 Acute pharyngitis, unspecified (principal) | CPT/HCPCS: 87071; 87880 ==

== ENCOUNTER 2022-12-21 05:49 | Outpatient (CLI) | payer MEDICARE, MEDICAID, SELFPAY ==
[2022-12-21] VITALS (12 sets, daily range): BP systolic 101–141; BP diastolic 62–97; PULSE 66–82; RESP 12–18; TEMP 37.1; O2SAT 92–99; BMI 27.5
--- NOTE | 2022-12-21 06:00 | XACV_ITS ---
Exam Room: 2 Ht: 193 cm Wt: 103 kg BSA: 2.36 m2 Gender: Male : 1980 Any Known Allergies: Penicillins Exam Priority: Routine Procedure(s): Procedure Description: Diagnostic procedure Procedure Description: Left Heart Catheterization Procedure Description: Coronary Angiography Quinn VENEGAS; Diagnostic Cath Status: Elective Diagnostic Findings * The left main is a medium caliber vessel with no significant stenotic lesions. * The left anterior descending artery is a medium caliber vessel which appears to taper off to his the LV apex. There is a long stented segment extending from the mid to the distal segment of the artery. The stented region was found to be patent with mild to moderate in-stent narrowing. The proximal and the distal segments of the stented area was found to have around 40% in-stent narrowing. The second and third diagonal branches were found to have minimal ostial narrowing.. * The circumflex artery is a medium caliber nondominant vessel which was found to have no significant stenotic lesions. The first obtuse marginal branch was found to have around 40% tubular narrowing in the proximal segment. No other significant lesions were noted. * The right coronary artery is a medium to large caliber dominant vessel which was found to have 30 to 40% irregular diffuse narrowing in the mid and distal segments involving the PDA branch. No significant stenotic lesions were noted.. Conclusions 1. This 42-year-old white male with a history of coronary disease and previous PCI, now presenting with increasing episodes of chest pain suggesting unstable angina. Patient underwent left heart catheterization with left and right coronary angiogram today. The findings are as follows. 2. Patent stented segments in the mid and distal LAD with around 40% in-stent narrowing in the proximal and distal part of the stented segments. Mild diffuse disease in the other vessels. LVEDP of 24 mmHg. Diagnostic RX Recommendation: medical therapy and/or counseling LV EDP: 24 mmHg Left Ventriculography Findings: * The LV gram was not performed. The LVEDP was 24 mmHg. Pressures Phase:Rest AO : 81 / 46 ( 61 ) @ 7:50:00 AM 114 / 69 ( 90 ) @ 8:08:00 AM 118 / 72 ( 92 ) @ 8:08:00 AM LV : 127 / 5 / 24 @ 8:08:00 AM 122 / 1 / 22 @ 8:08:00 AM Valves Phase:DefaultPhase AV : 9.0 @ 8:17:51 AM 9.0 @ 8:17:51 AM AV Mean Gradient: 17.0 @ 8:17:51 AM 17.0 @ 8:17:51 AM Clinical Evaluation EBL: 5mL-10mL Procedural Details Procedure Consent Obtained. Admit Source: Out Patient. Pre-Procedure Time Out. Identified patient by full name and date of as verbalized by the patient/guarantor. Does the consent match the physician's order: Yes. Accurate & Complete Informed Consent: Yes. Inpatient/Outpatient History & Physical on Chart: Yes. If H&P is completed, is and addenduem needed: No; If yes, is the addendum complete: N/A. Visualize and Verify Site with Patient/Guarantor: N/A. Relevant Radiology Images available: N/A. The risks, benefits, and alternatives of sedation and/or procedure were discussed by physician. The patient agrees to continue. Procedure started. Anesthesia arrived to assist with sedation for procedure as requested by Dr. Ball. See Anesthesia flowsheet. [facility] Clinical Fraility Score: 3: Managing Well. Avid Editor Indications: Worsening Angina. Chest Pain Symptom Assessment: Typical Angina Symptoms. Correct patient, site and procedure confirmed by cath team. Current diagnosis: Chest Pain. PERRLA. Strong, equal hand speech language pathologist assistant bilaterally. Lungs clear x 5 lobes. IV Site on Arrival: 20 gauge in the right anticubital. IV Fluids: 0.9% NaCl at 75ml/hr. 0 mL infused prior to cathode washer. Pre Procedural Pulses: bilateral dorsalis pedis was 2+. Pre Procedural Pulses: bilateral posterior tibial was 2+. Pre Procedural Pulses: bilateral radial was 3+. Oxygen started at 2liters/min via nasal canula. right groin was prepped with chloroprep then draped in the usual sterile fashion. right radial was prepped with chloroprep then draped in the usual sterile fashion. Physician notified. Baseline sample Acquired. HR: 67 BPM. Physician arrived. Physician scrubbed in. Immediate Pre-Procedure Time Out. Correct Patient: Yes; Correct Procedure: Yes; Correct Site: Yes; Correct Patient Position: Yes; Correct Supplies: Yes; Dried Flammable Prep: Yes; Blood Products Available: N/A;. Lidocaine 1% infiltrated to the right radial. Arterial access obtained. A 5 bhutanese Isidro catheter in over wire. Catheter removed over the exchange wire. A 5 bhutanese JR4 catheter in over wire. Exchange wire out. Catheter removed over the exchange wire. A 5 bhutanese TIG catheter in over wire. Multiple views taken of left coronary artery. Catheter redirected to the RCA. Catheter removed over the exchange wire. A 6 bhutanese JR4 catheter in over wire. Multiple views taken of right coronary artery. Catheter removed over the exchange wire. A 5 bhutanese Angled Pig catheter in over wire. Exchange wire out. EDP Sample taken: LV 127/5,24; HR: 77 BPM; SpO2: 97%. Pullback taken: LV 122/1,22; AO 114/69(90); Mean: 17mmHg, Peak to Peak: 9mmHg, SEP: 7sec/min; HR: 78 BPM; SpO2: 97%. Catheter removed over the exchange wire. Physician review of cine films. Flushing radial sheath periodically with heparinized saline to maintain patentcy of radial artery. A TR Band was successful obtaining hemostatsis at the Right Radial artery insertion site. PERRLA. Strong, equal hand speech language pathologist assistant bilaterally. No VTE prophylaxis required. Medication's Wasted: Nitro = 50 mg. Medication's Wasted: Heparin = 1000 unit. Medication's Wasted: Other = Versed 3 mg. Total IV fluids: 500 mL. Post-op diagnosis: Patent Stent, Moderate CAD. Complications: None. Estimated blood loss: 5mL-10mL. Responsiveness - Normal response to verbal stimuli; alert and oriented, PERRLA. Airway - Unaffected, no intervention required; spontaneous ventilation. Circulation: W/N/L, pulses unchanged. Nausea/Vomiting: N/A. Procedure completed. Patient transferred by wheelchair to CPRU. Vital chart was stopped. Access Site Site: Right Radial artery Sheath Size: 6 Fr Hemostasis Method: TR Band Hemostasis Success: Successful Procedure Medications Start: 7:34 AM Stop: 7:34 AM Medication: 0.9% Saline Amount: 250 ml Route: I.V. bolus Start: 7:38 AM Stop: 7:38 AM Medication: Verapamil Amount: 5 mg Route: I.A. Start: 7:44 AM Stop: 7:44 AM Medication: Heparin Amount: 5000 units Route: I.V. I, the attending physician, have reviewed and verified all procedure medications. Yes, all medications given per verbal order History/Risk Factors Hypertension: No Dyslipidemia: Yes Peripheral Arterial Disease (PAD): No Myocardial Infarction (FL): No Obesity: No Renal Disease: No Tobacco Use: Former Prior Interventions PCI: Yes CABG: No Valve Surgery: No Date of PCI: 05/11/2017 Report Signatures Finalized by Dr Onel Ball MD [facility] on 12/22/2022 01:00 PM
[2022-12-21] MEDS: diphenhydrAMINE 50 mg Capsule PO (06:15)
[2022-12-21] MEDS: aspirin 325 mg Tablet PO (06:15)
[2022-12-21 06:45] LABS: Basophils # 0.1 10^3/uL (0.0-0.1); Basophils % 0.8 %; Eosinophils # 0.2 10^3/uL (0.0-0.8); Eosinophils % 3.1 %; Hematocrit 45.6 % (42.0-52.0); Hemoglobin 14.9 g/dL (11.7-16.6); Lymphocytes # 2.3 10^3/uL (0.8-4.8); Mean Corpuscular HGB Conc 32.7 g/dL (30.0-36.0); Mean Corpuscular Volume 97.9 fl (80-94); Mean Platelet Volume 9.2 fL (7.4-10.4); Monocytes # 0.8 10^3/uL (0.2-0.9); Monocytes % 11.3 %; Neutrophils # 3.94 10^3/uL (1.8-7.7); Neutrophils % 53.1 %; Nucleated Red Blood Cells % 0 %; Platelet Count 275 10^3/cmm (130-400); Red Blood Count 4.66 10^6/uL (4.1-5.3); Red Cell Distribution Width 12.9 % (12.1-15.1); White Blood Count 7.4 10^3/uL (4.0-10.0)
[2022-12-21 06:57] LABS: Blood Urea Nitrogen 12 mg/dL (6-20); Carbon Dioxide 24 mmol/L (22-29); Chloride 103 mmol/L (98-107); Glucose 111 mg/dL (65-115); Osmolality Calculated 288 mOsm/kg (285-295); Sodium 139 mmol/L (136-145)
--- NOTE | 2022-12-21 07:03 | W.PM.OPSUD ---
Surgery/Procedure H&P Update DATE OF PROCEDURE: December 21, 2022 DATE H&P PERFORMED: 08/07/22 H&P UPDATE INFORMATION: I have reviewed H&P completed within last 30 days, I have examined patient prior to procedure and No changes to prior documentation PREOP DIAGNOSIS: ASHD PRIMARY INDICATION FOR PROCEDURE: History of coronary artery disease. Increasing episodes of chest pain. PLANNED PROCEDURE: Operation Date: 12/21/22 07:00 Proposed Procedures p [facility] 50649,R94.39 Does have iodinated contrast media allergy ANESTHESIA STANDY Patient has trouble with sedation.(Left) - Onel Ball MD Patient is on multiple pain medications and had problems with sedations in the past. So we will consult with anesthesia to administer sedation.
--- NOTE | 2022-12-21 07:22 | P.ANESASSM_ITS ---
Pre-Anesthetic Assessment Height/Weight: Height 1.93 m Preop Diagnosis: ASHD Operation Date: 12/21/22 07:00 Proposed Procedures p [facility] 49232,R94.39 Does have iodinated contrast media allergy ANESTHESIA STANDY Patient has trouble with sedation.(Left) - Onel Ball MD Was Beta Robert taken within 24 hours: N/A Was Clonidine taken within 24 hours: N/A Social Alcohol opiod hx Exam alert, oriented x 3, clear to auscultation bilaterally and regular rate & rhythm Airway Submandibular: within normal limits Cervical ROM: within normal limits Mallampati: Class II Dentition: full History/ROS No significant history except as noted and No significant complaints Pulmonary Shortness of Breath CV/HEM Stable Angina and Coronary Artery Disease cardiomyopathy None reported Hepatic Hepatitis GI Gastroesophageal Reflux Disease Metabolic None reported Musc/skel Fibromyalgia Neuropsych Anxiety and Neuropathy Anesthetic Plan ASA status: 3 Anesthesia: Anesthesia Evaluation and MAC Risk of > 500 ml blood loss (7ml/kg in children): No Medications/Allergies Home Medications Medication Instructions Recorded Confirmed Last Taken Type mupirocin 2 % topical ointment 1 applic topical BID PRN Itching 08/23/22 12/21/22 1 Week Ago History ~08/16/22 pantoprazole 40 mg tablet,delayed 40 mg PO BID 6 weeks #84 tabs 11/08/22 12/21/22 12/21/22 04:30 Rx release (Protonix) albuterol sulfate 90 mcg/actuation 1 inh inhalation QID PRN shortness 11/29/22 12/21/22 Unknown Rx aerosol inhaler of breath or wheezing #8.5 grams buprenorphine HCl 2 mg sublingual 2 mg sublingual DAILY 11/29/22 12/21/22 12/17/22 History tablet clopidogrel 75 mg tablet 75 mg PO DAILY 90 days #90 tabs 11/29/22 12/21/22 12/21/22 04:30 Rx nitroglycerin 0.4 mg sublingual 0.4 mg sublingual Q5M PRN chest 11/29/22 12/21/22 Unknown Rx tablet (Nitrostat) pain #30 tabs ezetimibe 10 mg tablet 10 mg PO DAILY #30 tabs 12/01/22 12/21/22 12/21/22 04:30 Rx celecoxib 50 mg capsule (Celebrex) 50 mg PO BID 12/08/22 12/21/22 12/21/22 04:30 History cyclobenzaprine 5 mg tablet 1 mg PO TID PRN Allergic Reaction 12/08/22 12/21/22 Unknown History metoprolol tartrate 25 mg tablet 25 mg PO BID 0 days #60 tabs 12/08/22 12/21/22 12/21/22 04:30 Rx Allergies Allergy/AdvReac Type Severity Reaction Status Date / Time Unblmnw-[id number]-AoK Reductase Allergy Severe Unresponsiv Verified 12/21/22 06:58 Inhibitor e droperidol Allergy Unknown Unknown Verified 12/21/22 06:58 duloxetine [From Cymbalta] Allergy Unknown Unknown Verified 12/21/22 06:58 gabapentin [From Neurontin] Allergy Unknown Unknown Verified 12/21/22 06:58 Iodinated Contrast Media Allergy Unknown Unknown Verified 12/21/22 06:58 paroxetine [From Paxil] Allergy Unknown Unknown Verified 12/21/22 06:58 pregabalin [From Lyrica] Allergy Unknown Unknown Verified 12/21/22 06:58 sertraline [From Zoloft] Allergy Unknown Unknown Verified 12/21/22 06:58 Penicillins Allergy ALGY-Hives Verified 12/21/22 06:58 Current Medications Generic Name Dose Route Start Last Admin Trade Name Freq PRN Reason Stop Dose Admin Sodium Chloride 1,000 mls @ 50 mls/hr 12/21/22 06:00 12/21/22 06:38 Sodium Chloride 0.9% IV 12/22/22 01:59 Not Given .Q20H ONE PFSH Anesthesia Medical History Arteriosclerotic heart disease (ASHD) Cyst near coccyx Depression Esophageal diverticulum Fibromyalgia Ganglion cyst of left groin GERD (gastroesophageal reflux disease) Hepatitis B Insomnia, unspecified Mixed hyperlipidemia Paget disease of bone Polyneuropathy, unspecified Unspecified osteoarthritis, unspecified site Surgical History Hx of angioplasty Hx of appendectomy Hx of colonoscopy (~01/2019) Family History Family/Other CAD (coronary artery disease) Anxiety Other Hyperlipidemia Hypertension Denies family history of Diabetes Clotting disorder Dementia Chronic kidney disease (CKD) Anesthesia complication Bleeding disorder Lung disease Cancer Stroke Social History Smoking and tobacco status: former smoker Quit status (tobacco): has quit using tobacco Year quit tobacco: 2017 Former quit date comment: quit chewing Alcohol intake: current Alcohol intake frequency: few times a week Lives independently: Yes Household members: spouse Marital status: Current occupational status: unemployed History of recent travel: No Current gender identity: Male Data Anesthesia 12/21/22 06:30 12/21/22 06:30 Short CBC 12/21/22 Range/Units 06:30 WBC 7.4 (4.0-10.0) 10^3/uL Hgb 14.9 (11.7-16.6) g/dL Hct 45.6 (42.0-52.0) % MCV 97.9 H (80-94) fl Plt Count 275 (130-400) 10^3/cmm Neut % (Auto) 53.1 % Neut # (Auto) 3.94 (1.8-7.7) 10^3/uL BMP 12/21/22 06:30 Sodium 139 Potassium 4.0 Chloride 103 Carbon Dioxide 24 BUN 12 Creatinine 0.8 Glucose 111 Calcium 9.0 Cardiac Studies: Sestamibi Stress Test (Cardiology) 09/09
--- NOTE | 2022-12-21 08:15 | SUR.PHASEII ---
[place] the [place] via [place] s/p diagnostic [facility]. Patient ambulated to the bed without difficulty. phlebotomy technologist placed and vital signs obtained. TR band intact to the right wrist with no bleeding or hematoma present. palpable radial pulse. spouse at bedside. the patient is requesting orange just and wants to know if he can have the syringe to take the bracelet off . this nurse as well as Whitney Marks RN, both explained the importance of the TR band and how the nurse will be the one to take it off per hospital policy. The TR band syringe was removed from the room to be used at a later time so that the patient would not use it. activity restrictions were also explained to the patient and his spouse. they both verbalized their understanding. will continue to monitor the patient closely. the patient is sitting straight up in bed with his legs crossed and refuses to sit back in order for this nurse to obtain a BP. His spouse asked him to sit still and allow this nurse to take the BP and he agreed at this time. No other assessment changes noted from pre cath assessment. a breakfast tray has been ordered.
--- NOTE | 2022-12-21 09:15 | SUR.PHASEII ---
Letting the air out of the TR band per protocol
--- NOTE | 2022-12-21 09:17 | SUR.PHASEII ---
Dr. Ball here to see patient. verbal order given to this nurse to give a one time dose of Ranexa 500mg PO and then to start Ranexa 500mg PO BID at discharge. See MAR for administration time.
[2022-12-21] MEDS: ranolazine (12HR) 500 mg Tablet PO (09:40)
--- NOTE | 2022-12-21 10:15 | SUR.PHASEII ---
TR band off. area cleansed with warm water and patted dry. no bleeding or hematoma noted. band aid applied to the site. activity restrictions reiterated to the patient and his spouse with their understanding voice.
--- NOTE | 2022-12-21 11:25 | SUR.PHASEII ---
patient DC'd home via wheelchair with spouse
--- NOTE | 2022-12-21 15:34 | ANE.PACU2 ---
Inpatient post-anesthesia follow up: Airway intact: Yes Vital signs: Temperature 98.7 F Pulse Rate 67 Respiratory Rate 12 Blood Pressure [Le ft Arm] 125/88 Blood Pressure 115/97 Pulse Oximetry 92 Oxygen Delivery Me thod Room Air Oxygen Flow Rate Fraction of Inspir ed Oxygen Hydration adequate: Yes Nausea and vomiting: No Pain level: 2 Mental status: Baseline
== END 2022-12-21 05:50 | disposition home or self-care (01) ==
PROVIDERS: PCP Family Medicine; Visit Provider Internal Medicine Cardiovascular Disease
DX: I25.10 Atherosclerotic heart disease of native coronary artery without angina pectoris (principal); Z87.891 Personal history of nicotine dependence; I42.9 Cardiomyopathy, unspecified; K21.9 Gastro-esophageal reflux disease without esophagitis; M79.7 Fibromyalgia; F41.9 Anxiety disorder, unspecified; F32.A Depression, unspecified; E78.2 Mixed hyperlipidemia
CPT/HCPCS: 80048; 85025; 93458; 96361; 96365; C1769; C1887; C1894; J1644; J2250; J2704; J3010; J3490; J7030; Q0163; Q9967

== ENCOUNTER 2023-01-30 13:58 | Emergency (ER) | payer MEDICARE, MEDICAID, SELFPAY ==
[2023-01-30 14:03] VITALS: BP 118/73; PULSE 92; RESP 18; TEMP 36.4; O2SAT 94
[2023-01-30 15:30] LABS: Basophils % 0.4 %; Eosinophils # 0.1 10^3/uL (0.0-0.8); Eosinophils % 1.8 %; Hematocrit 44.7 % (42.0-52.0); Hemoglobin 14.9 g/dL (11.7-16.6); Lymphocytes # 0.6 10^3/uL (0.8-4.8); Lymphocytes % 8.1 %; Mean Corpuscular HGB Conc 33.3 g/dL (30.0-36.0); Mean Corpuscular Hemoglobin 32.6 pg (28.0-34.0); Mean Corpuscular Volume 97.8 fl (80-94); Mean Platelet Volume 9.4 fL (7.4-10.4); Monocytes # 0.4 10^3/uL (0.2-0.9); Monocytes % 5.6 %; Neutrophils # 5.95 10^3/uL (1.8-7.7); Neutrophils % 83.5 %; Nucleated Red Blood Cells % 0 %; Platelet Count 197 10^3/cmm (130-400); Red Blood Count 4.57 10^6/uL (4.1-5.3); Red Cell Distribution Width 12.4 % (12.1-15.1); White Blood Count 7.1 10^3/uL (4.0-10.0)
[2023-01-30 15:35] VITALS: BP 115/68; PULSE 74; RESP 16; TEMP 36.7; O2SAT 95
[2023-01-30 15:58] LABS: Alanine Aminotransferase 75 U/L (0-41); Albumin Level 4.2 g/dL (3.5-5.2); Alkaline Phosphatase 85 U/L (40-130); Anion Gap 16.3 (5-19); Aspartate Amino Transferase 49 U/L (0-40); Blood Urea Nitrogen 14 mg/dL (6-20); Calcium 8.9 mg/dL (8.5-10.5); Carbon Dioxide 23 mmol/L (22-29); Chloride 99 mmol/L (98-107); Globulin 3.4 g/dL (1.3-4.6); Glomerular Filtration Rate 122.5 mL/min (90-130); Glucose 113 mg/dL (65-115); Lipase 20 U/L (13-60); Osmolality Calculated 279 mOsm/kg (285-295); Potassium 4.3 mmol/L (3.5-5.1); Sodium 134 mmol/L (136-145); Total Bilirubin 0.7 mg/dL (0.15-1.2); Total Protein 7.6 g/dL (6.6-8.7)
--- NOTE | 2023-01-30 17:32 | CTR_ITS ---
PROCEDURE INFORMATION: Exam: CT Abdomen And Pelvis With Contrast Exam date and time: 01/30/2023 6:42 PM Age: 42 years old Clinical indication: Nausea and vomiting; Additional info: Abd pain, n/v, R/O infection/abscess TECHNIQUE: Imaging protocol: Computed tomography of the abdomen and pelvis with contrast. Radiation optimization: All CT scans at this facility use at least one of these dose optimization techniques: automated exposure control; mA and/or kV adjustment per patient size (includes targeted exams where dose is matched to clinical indication); or iterative reconstruction. Contrast material: OMNI 350; Contrast volume: 100 ml; Contrast route: INTRAVENOUS (IV); REPORTING DATA: Count of CT and Cardiac NM exams in prior 12 months: This patient has received 0 known CTs and 0 known cardiac nuclear medicine studies in the 12 months prior to the current study. COMPARISON: CR XR abdomen min 2V [id number] 11/03/2020 9:40 AM RADIATION DOSE METRICS: Total DLP (mGy-cm): 871.93 FINDINGS: Lungs: Right lower lobe atelectasis. Coronary arteries: Coronary artery atherosclerotic calcifications. Liver: Hepatic steatosis. Gallbladder and bile ducts: Normal. No calcified stones. No ductal dilation. Pancreas: Normal. No ductal dilation. Spleen: Normal. No splenomegaly. Adrenal glands: Normal. No mass. Kidneys and ureters: Right kidney cysts, negative for follow-up advised. Stomach and bowel: Prominent fluid in the stomach and small bowel may reflect a gastroenteritis. Appendix: No evidence of appendicitis. Intraperitoneal space: Unremarkable. No free air. No significant fluid collection. Vasculature: Unremarkable. No abdominal aortic aneurysm. Lymph nodes: Unremarkable. No enlarged lymph nodes. Urinary bladder: Unremarkable as visualized. Reproductive: Unremarkable as visualized. Bones/joints: Unremarkable. No acute fracture. Soft tissues: Unremarkable. CT/CT abdomen pelvis w con* [id number] IMPRESSION: 1. Prominent fluid in the stomach and small bowel may reflect a gastroenteritis. 2. Coronary artery atherosclerotic calcifications. 3. Right lower lobe atelectasis. 4. Hepatic steatosis. 5. Right kidney cysts, negative for follow-up advised.
--- NOTE | 2023-01-30 17:35 | ED_ITS ---
HPI - Abdominal Pain General: Chief Complaint: Abdominal Pain Stated Complaint: n/v/body aches Time Seen by Provider: 01/30/23 15:08 History of Present Illness: 42-year-old male patient comes in today with complaints of abdominal pain. Patient reports pain started last night with epi sodes of nausea and vomiting. Patient has a history of GERD, diverticula of the esophagus, H. pylori gastritis, patient does drink alcohol routinely, coronary artery disease, atherosclerosis. Patient appears nontoxic. Patient appears in mild to moderate pain. Associated Symptoms: Reports nausea and vomiting; Denies constipation, diarrhea and fever(s) Review of Systems General: Reports: 10 or more systems reviewed and unremarkable except in HPI and below Const: Denies: fever(s) Card: Denies: chest pain Resp: Denies: dyspnea GI: Reports: abdominal pain, nausea and vomiting; Denies: diarrhea or constipation : Denies: difficulty urinating Skin/Breast: Denies: rash Neuro: Denies: headache(s) PFS ED PFSH: Medical History Arteriosclerotic heart disease (ASHD) Cyst near coccyx Depression Esophageal diverticulum Fibromyalgia Ganglion cyst of left groin GERD (gastroesophageal reflux disease) Hepatitis B Insomnia, unspecified Mixed hyperlipidemia Paget disease of bone Polyneuropathy, unspecified Unspecified osteoarthritis, unspecified site Surgical History Hx of angioplasty Hx of appendectomy Hx of colonoscopy (~01/2019) Family History Family/Other CAD (coronary artery disease) Anxiety Other Hyperlipidemia Hypertension Denies family history of Diabetes Clotting disorder Dementia Chronic kidney disease (CKD) Anesthesia complication Bleeding disorder Lung disease Cancer Stroke Social History Smoking and tobacco status: former smoker Quit status (tobacco): has quit using tobacco Year quit tobacco: 2017 Former quit date comment: quit chewing Alcohol intake: current Alcohol intake frequency: few times a week Lives independently: Yes Household members: spouse Marital status: Current occupational status: unemployed Current gender identity: Male Physical Exam Const: COMMON NORMALS: alert HENMT: COMMON NORMALS: normocephalic HEAD & SCALP: normocephalic Neck/C-Spine: COMMON NORMALS: full ROM Resp: COMMON NORMALS: normal respiratory effort and clear to auscultation bilaterally AUSCULTATION: clear to auscultation bilaterally Cardio: COMMON NORMALS: regular rate RATE: regular rate GI: COMMON NORMALS: Soft to palpation AUSCULTATION: Yes normoactive bowel sounds PALPATION: Yes Soft to palpation and Yes Tenderness to palpation present (GI) (Generalized) Extremity: COMMON NORMALS: full ROM Neuro: SENSORIUM/ORIENTATION: Yes alert Skin: COMMON NORMALS: turgor normal GENERAL SKIN EXAM: turgor normal Course Vital Signs: Vital signs: Vital Signs Temperature 98.1 F 01/30/23 15:35 Pulse Rate 86 01/30/23 19:36 Respiratory Rate 16 01/30/23 19:36 Blood Pressure 133/114 01/30/23 19:36 Pulse Oximetry 96 01/30/23 19:36 Oxygen Delivery Me thod 01/30/23 19:19 MDM - Abdominal Pain Medical Decision Making 42-year-old male patient comes in today for complaints of nausea and vomiting and abdominal pain starting last night. Patient reports that the pain was unable to tolerate and he came into the ER for further evaluation and treatment. On exam abdomen soft with generalized tenderness. No guarding or rebound tenderness is noted. Vital signs are normal. Differential diagnosis includes but not limited to gastritis, pancreatitis, gallbladder disease, abdominal abscess/infection. Laboratory values were unremarkable except for some mild elevation in ALT and AST's. CT of the abdomen pelvis noted signs of gastroenteritis. No other significant abnormalities were noted. Reviewed exam with patient with recommendations for treatment and follow-up. Patient felt better after treatment with IV fluids, antiemetic, and pain medication. Patient be continued on antiemetics and dicyclomine. Patient reported understanding of care plan and need for follow-up or return to ER. Lab Data 01/30/23 15:19 01/30/23 15:19 Labs/Radiology: Radiology Impressions Abdomen/Pelvis CT 01/30/23 17:32 IMPRESSION: 1. Prominent fluid in the stomach and small bowel may reflect a gastroenteritis. 2. Coronary artery atherosclerotic calcifications. 3. Right lower lobe atelectasis. 4. Hepatic steatosis. 5. Right kidney cysts, negative for follow-up advised. Laboratory Results WBC 7.1 10^3/uL (4.0-10.0) 01/30/23 15:19 RBC 4.57 10^6/uL (4.1-5.3) 01/30/23 15:19 Hgb 14.9 g/dL (11.7-16.6) 01/30/23 15:19 Hct 44.7 % (42.0-52.0) 01/30/23 15:19 MCV 97.8 fl (80-94) H 01/30/23 15:19 MCH 32.6 pg (28.0-34.0) 01/30/23 15:19 MCHC 33.3 g/dL (30.0-36.0) 01/30/23 15:19 RDW 12.4 % (12.1-15.1) 01/30/23 15:19 Plt Count 197 10^3/cmm (130-400) 01/30/23 15:19 MPV 9.4 fL (7.4-10.4) 01/30/23 15:19 Neut % (Auto) 83.5 % 01/30/23 15:19 Lymph % (Auto) 8.1 % 01/30/23 15:19 [place] % (Auto) 5.6 % 01/30/23 15:19 Eos % (Auto) 1.8 % 01/30/23:19 Baso % (Auto) 0.4 % 01/30/23 15:19 Neut # (Auto) 5.95 10^3/uL (1.8-7.7) 01/30/23 15:19 Lymph # (Auto) 0.6 10^3/uL (0.8-4.8) L 01/30/23 15:19 [place] # (Auto) 0.4 10^3/uL (0.2-0.9) 01/30/23 15:19 Eos # (Auto) 0.1 10^3/uL (0.0-0.8) 01/30/23 15:19 Baso # (Auto) 0.0 10^3/uL (0.0-0.1) 01/30/23 15:19 Nucleated RBC % (auto) 0 % 01/30/23 15:19 Nucleated RBCs # 0.0 /100WBC 01/30/23 15:19 Sodium 134 mmol/L (136-145) L 01/30/23 15:19 Potassium 4.3 mmol/L (3.5-5.1) 01/30/23 15:19 Chloride 99 mmol/L (98-107) 01/30/23 15:19 Carbon Dioxide 23 mmol/L (22-29) 01/30/23 15:19 Anion Gap 16.3 (5-19) 01/30/23 15:19 BUN 14 mg/dL (6-20) 01/30/23 15:19 Creatinine 0.7 mg/dL (0.7-1.2) 01/30/23 15:19 GFR Calculation 122.5 mL/min (90-130) 01/30/23 15:19 Glucose 113 mg/dL (65-115) 01/30/23 15:19 Calculated Osmolality 279 mOsm/kg (285-295) L 01/30/23 15:19 Calcium 8.9 mg/dL (8.5-10.5) 01/30/23 15:19 Total Bilirubin 0.7 mg/dL (0.15-1.2) 01/30/23 15:19 AST 49 U/L (0-40) H 01/30/23 15:19 ALT 75 U/L (0-41) H 01/30/23 15:19 Alkaline Phosphatase 85 U/L (40-130) 01/30/23 15:19 Total Protein 7.6 g/dL (6.6-8.7) 01/30/23 15:19 Albumin 4.2 g/dL (3.5-5.2) 01/30/23 15:19 Globulin 3.4 g/dL (1.3-4.6) 01/30/23 15:19 Lipase 20 U/L (13-60) 01/30/23 15:19 Urine Color Yellow (Yellow) 01/30/23 19:15 Urine Appearance Clear (CLEAR) 01/30/23 19:15 Urine pH 5 (5-7) 01/30/23 19:15 [address] [place] 1.005 (1.005-1.030) 01/30/23 19:15 Urine Protein 1+ (Negative) H 01/30/23 19:15 Urine Glucose (UA) Norm (Normal) 01/30/23 19:15 Urine Ketones Negative (Negative) 01/30/23 19:15 Urine Blood Neg (Negative) 01/30/23 19:15 Urine Nitrate Negative (Negative) 01/30/23 19:15 Urine Bilirubin 1+ (Negative) H 01/30/23 19:15 Urine Urobilinogen 1 mg/dL (Negative) H 01/30/23 19:15 Ur Leukocyte Esterase Trace (Negative) H 01/30/23 19:15 Urine RBC Rare /hpf (0-2) 01/30/23 19:15 Urine WBC 0-4 /hpf (0-5) H 01/30/23 19:15 Ur Squamous Epith Cells Rare /hpf (0-5) 01/30/23 19:15 Amorphous Sediment Not Reportable 01/30/23 19:15 Urine Bacteria None /hpf (NONE) 01/30/23 19:15 Discharge Plan Discharge Patient Disposition: Home Clinical Impression: Gastroenteritis Condition: Stable Prescriptions: New dicyclomine 20 mg tablet 20 mg PO TID Qty: 15 0RF ondansetron 4 mg tablet,disintegrating 4 mg PO Q8H PRN (Reason: nausea and vomiting) Qty: 10 0RF No Action pantoprazole [Protonix] 40 mg tablet,delayed release (DR/EC) 40 mg PO BID 42 Days Qty: 84 1RF buprenorphine HCl 2 mg tablet, sublingual 2 mg sublingual DAILY nitroglycerin [Nitrostat] 0.4 mg tablet, sublingual 0.4 mg SUBLINGUAL Q5M PRN (Reason: chest pain) Qty: 30 6RF clopidogrel 75 mg tablet 75 mg PO DAILY 90 Days Qty: 90 1RF albuterol sulfate 90 mcg/actuation HFA aerosol inhaler 1 inh inhalation QID PRN (Reason: shortness of breath or wheezing) Qty: 8.5 1RF cyclobenzaprine 5 mg tablet 1 mg PO TID PRN (Reason: Allergic Reaction) celecoxib [Celebrex] 50 mg capsule 50 mg PO BID metoprolol tartrate 25 mg tablet 25 mg PO BID Qty: 60 5RF ezetimibe 10 mg tablet 10 mg PO DAILY Qty: 30 2RF mupirocin 2 % ointment 1 applic TOPICAL BID PRN (Reason: Itching) Rx Instructions: Apply twice daily to affected area on backside until healed Ranexa 500 mg tablet extended release 12 hr 500 mg PO BID Qty: 60 5RF Discharge Orders: Discharge ED (Routine); Ordered 01/30/23 Ordered By: Ok Higginbotham Referrals: Alcides Gonzalez MD [Primary Care Provider] - Discharge Diet: Advance as tolerated Discharge Activity: Increase activity as tolerated Patient Instructions: Gastroenteritis (ED) Activity Restrictions/Additional Instructions: Drink frequent sips of fluid to maintain hydration. Clear liquid diet until pain resolves. Increase diet to a bland diet over the next 24 to 48 hours. Use dicyclomine 20 mg 3 times a day for abdominal cramping and pain. Use ondanset munira 4 mg every 3 hours as needed for nausea or vomiting. Most often gastroenteritis to run its course in 3 to 5 days. Nausea and vomiting in route resolves in 24 to 48 hours. Diarrhea may persist up to 3 to 5 days. Follow-up with primary care for further concerns. Return to ED for worsening symptoms such as high fever greater than 100.4, blood in vomit or stool, or new concerns. Coding Level of Care Code ED Head Of Housekeeping for Aidan Gray
[2023-01-30] MEDS: iohexol 350 mg/mL 500 mL Btl (per mL) IV (18:46)
[2023-01-30] MEDS: morphine 4 mg/mL SDV 1 mL IVP (18:56)
[2023-01-30] MEDS: ondansetron 2 mg/ML SDV 2 mL 4 MG IVP (18:56)
[2023-01-30] MEDS: sodium chloride 0.9% 1,000 ML 999 ML IV (18:58)
[2023-01-30 19:19] VITALS: BP 134/81; PULSE 85; RESP 16; O2SAT 95
[2023-01-30 19:36] VITALS: BP 133/114; PULSE 86; RESP 16; O2SAT 96
[2023-01-30 19:38] LABS: Blood Urine Neg (Negative); Glucose Urine UA Norm (Normal); Ketones Urine Negative (Negative); Nitrate Urine Negative (Negative); Protein Urine 1+ (Negative); Specific Gravity, Urine 1.005 (1.005-1.030); Urine Appearance Clear (CLEAR); Urine Color Yellow (Yellow); pH Urine 5 (5-7)
[2023-01-30 19:39] LABS: Add Urine Culture? No; Add Urine Microscopic? YES; Bilirubin Urine 1+ (Negative); Leukocyte Esterase Urine Trace (Negative); RBC Urine RARE /hpf (0-2); Squamous Epithelial Cell Urine RARE /hpf (0-5); Urobilinogen Urine 1 mg/dL (Negative); WBC Urine 0-4 /hpf (0-5)
== END 2023-01-30 19:37 | disposition home or self-care (01) ==
PROVIDERS: Family Medicine; Emergency Provider Nurse Practitioner Family; PCP Family Medicine
DX: K52.9 Noninfective gastroenteritis and colitis, unspecified (principal); Z79.02 Long term (current) use of antithrombotics/antiplatelets; Z87.891 Personal history of nicotine dependence; E78.2 Mixed hyperlipidemia
CPT/HCPCS: 36415; 74177; 80053; 81001; 83690; 85025; 96361; 96374; 96375; 99285; J2270; J2405; J7030; Q9967

== ENCOUNTER 2023-01-31 10:33 | Outpatient (CLI) | payer MEDICARE, MEDICAID, SELFPAY ==
--- NOTE | 2023-01-31 10:49 | MR_ITS ---
WS: [id number] MRI CERVICAL SPINE NONCONTRAST HISTORY: RADICULOPATHY CERVICAL REGION COMPARISON: 06/04/2009 Technique: Multiplanar, multisequence noncontrast imaging of the cervical spine. Normal cervical alignment with no compression fracture or significant disc space narrowing. Signal within the cervical cord is normal. Visualized posterior fossa is unremarkable. Craniocervical junction, C1 and C2 relationship, odontoid process and soft tissues are normal. C2-C3: Normal. C3-C4: Normal. C4-C5: Normal. C5-C6: Very minimal facet joint arthritis. No stenosis. C6-C7: Minimal osteophytic ridging. No stenosis. C7-T1: Normal. Paraspinal soft tissue are normal. MR/MR cervical spin wo con* [id number] IMPRESSION: 1. No significant central or foraminal stenosis. 2. No disc protrusions. No signal abnormality in the cord.
== END 2023-01-31 10:34 | disposition home or self-care (01) ==
PROVIDERS: PCP Family Medicine; Visit Provider Anesthesiology
DX: M54.12 Radiculopathy, cervical region (principal)
CPT/HCPCS: 72141

== ENCOUNTER → 2023-02-01 08:59 | Outpatient (BNVA) | payer MEDICARE, MEDICAID, SELFPAY | PROVIDERS: PCP Family Medicine; Visit Provider Internal Medicine Pulmonary Disease | DX: I25.10 Atherosclerotic heart disease of native coronary artery without angina pectoris (principal); J68.0 Bronchitis and pneumonitis due to chemicals, gases, fumes and vapors; R06.02 Shortness of breath; J82.83 Eosinophilic asthma; Z87.891 Personal history of nicotine dependence; E78.5 Hyperlipidemia, unspecified; R06.83 Snoring | CPT/HCPCS: 36415; 82565; 82785; 84520; 86003; 99214 ==

== ENCOUNTER → 2023-02-01 08:59 | Outpatient (BNVA) | payer MEDICARE, MEDICAID, SELFPAY | PROVIDERS: PCP Family Medicine; Visit Provider Internal Medicine Pulmonary Disease | DX: I25.10 Atherosclerotic heart disease of native coronary artery without angina pectoris (principal); Z87.891 Personal history of nicotine dependence; J68.0 Bronchitis and pneumonitis due to chemicals, gases, fumes and vapors; J82.83 Eosinophilic asthma; R04.2 Hemoptysis; R06.83 Snoring; G47.33 Obstructive sleep apnea (adult) (pediatric) | CPT/HCPCS: 99204 ==

== ENCOUNTER → 2023-02-08 14:17 | Outpatient (BNVA) | payer MEDICARE, MEDICAID, SELFPAY | PROVIDERS: PCP Family Medicine; Visit Provider Surgery | DX: R10.13 Epigastric pain (principal); R10.9 Unspecified abdominal pain | CPT/HCPCS: 99213 ==

== ENCOUNTER 2023-02-14 11:00 | Outpatient (CLI) | payer MEDICARE, MEDICAID, SELFPAY ==
--- NOTE | 2023-02-14 11:00 | US_ITS ---
WS: [id number] RIGHT UPPER QUADRANT ULTRASOUND HISTORY: abd pain COMPARISON: None available. Liver: 15.1 cm in length. Normal size liver and echogenicity. No bile duct dilatation or mass. Portal Vein: Normal hepatopetal flow with monophasic waveform. Gallbladder: Normally distended gallbladder with no stones or wall thickening. CBD: 0.3 cm Pancreas: Normal size and echogenicity. Right kidney: 11.0 cm in length. Normal size and echogenicity. No hydronephrosis or mass. Aorta and IVC: Unremarkable abdominal aorta and IVC. No ascites. US/US gall bladder [id number] IMPRESSION: Normal RIGHT upper quadrant ultrasound.
== END 2023-02-14 11:01 | disposition home or self-care (01) ==
LOC: RAD 11:04
PROVIDERS: PCP Family Medicine; Visit Provider Surgery
DX: R10.13 Epigastric pain (principal)
CPT/HCPCS: 76705

== ENCOUNTER 2023-02-22 11:19 | Outpatient (CLI) | payer MEDICARE, MEDICAID, SELFPAY ==
[2023-02-22 11:35] VITALS: PULSE 74; RESP 18; O2SAT 96
[2023-02-22] MEDS: albuterol 2.5 mg/3 mL Neb INHALATION (11:35)
[2023-02-22 11:40] VITALS: PULSE 75
== END 2023-02-22 11:20 | disposition home or self-care (01) ==
PROVIDERS: PCP Family Medicine; Visit Provider Internal Medicine Pulmonary Disease
DX: R06.02 Shortness of breath (principal)
CPT/HCPCS: 36415; 82565; 82785; 84520; 86003; 94060; 94726; 94729; 99214; J7613

== ENCOUNTER 2023-03-02 13:00 | Outpatient (CLI) | payer MEDICARE, MEDICAID, SELFPAY | END 2023-03-02 13:01 | disposition home or self-care (01) | LOC: SLEEP 03-07 09:05 | PROVIDERS: PCP Family Medicine; Visit Provider Internal Medicine Pulmonary Disease | DX: G47.33 Obstructive sleep apnea (adult) (pediatric) (principal) | CPT/HCPCS: 99213; G0399 ==

== ENCOUNTER 2023-03-07 08:09 | Outpatient (CLI) | payer MEDICARE, MEDICAID, SELFPAY ==
--- NOTE | 2023-03-07 08:00 | NM_ITS ---
WS: [id number] NUCLEAR MEDICINE HIDA SCAN WITH GALLBLADDER EJECTION FRACTION HISTORY: abd pain COMPARISON: Gallbladder ultrasound 02/14/2023 TECHNIQUE: The patient was intravenously injected with 7.6 mCi of TC99m Mebrofenin. Immediate imaging over the right upper quadrant was followed by 5 minute image and additional images for a total of 60 minutes. Normal uptake of radiotracer throughout the liver. Activity identified in the gallbladder at 15 minutes and well distended by 60 minutes. Activity in the proximal small bowel was seen by 20 minutes. Good washout of the radiotracer from the liver by 60 minutes. The patient then drank 8 ounces of Ensure Plus. Ejection fraction at 60 minutes was 80%. Normal GB ej ection fraction is 35-75%. Post fatty meal symptoms: None. NM/NM hepatobiliary w phar* [id number] IMPRESSION: 1. Normal HIDA scan. 2. Normal gallbladder ejection fraction.
== END 2023-03-07 08:10 | disposition home or self-care (01) ==
LOC: RAD 08:13
PROVIDERS: PCP Family Medicine; Visit Provider Surgery
DX: R10.9 Unspecified abdominal pain (principal)
CPT/HCPCS: 78227; A9537

== ENCOUNTER → 2023-04-05 14:26 | Outpatient (BNVA) | payer MEDICARE, MEDICAID, SELFPAY | PROVIDERS: PCP Family Medicine; Visit Provider Surgery | DX: R10.9 Unspecified abdominal pain (principal); R19.09 Other intra-abdominal and pelvic swelling, mass and lump; Z09 Encounter for follow-up examination after completed treatment for conditions other than malignant neoplasm | CPT/HCPCS: 99213 ==

== ENCOUNTER → 2023-05-03 14:36 | Outpatient (BNVA) | payer MEDICARE, MEDICAID, SELFPAY | PROVIDERS: PCP Family Medicine; Visit Provider Internal Medicine Pulmonary Disease | DX: J82.83 Eosinophilic asthma (principal); R06.83 Snoring; R04.2 Hemoptysis; R06.00 Dyspnea, unspecified; I25.10 Atherosclerotic heart disease of native coronary artery without angina pectoris | CPT/HCPCS: 36415; 86200; 86225; 86235; 86431; 99214 ==

== ENCOUNTER 2023-05-15 05:24 | Day surgery (SDC) | payer MEDICARE, MEDICAID, SELFPAY ==
[2023-05-12 09:04] VITALS: BMI 29.3
[2023-05-15] VITALS (15 sets, daily range): BP systolic 119–158; BP diastolic 65–99; PULSE 51–74; RESP 16–20; TEMP 36.1–36.3; O2SAT 92–98
--- NOTE | 2023-05-15 06:33 | P.ANESASSM_ITS ---
Pre-Anesthetic Assessment Height/Weight: Height 1.91 m Weight 106.594 kg Temp Pulse Resp BP Pulse Ox O2 Del Method 97.4 F L 70 18 146/93 96 Room Air 05/15/23 06:11 05/15/23 06:11 05/15/23 06:11 05/15/23 06:11 05/15/23 06:11 05/15/23 06:27 Operation Date: 05/15/23 07:00 Proposed Procedures p [id number] lap jomar and subcutaneous mass left groin R10.9,R19.09(Not Applicable) - Tommy Soto DO s Excision Mass/Lesion/Cyst Lower Extremit(Left) - Tommy Soto DO Familial anesthetic complications: none Was Beta Robert taken within 24 hours: N/A Was Clonidine taken within 24 hours: N/A Last intake: Intake Last Liquid Date 05/14/23 Last Liquid Time 23:59 Last Solid Date 05/14/23 Last Solid Time 21:00 Social Tobacco (chews) Exam alert, oriented x 3, clear to auscultation bilaterally and regular rate & rhythm Airway Mallampati: Class II Dentition: full Pulmonary Asthma and Sleep Apnea restrictive lung dz CV/HEM Coronary Artery Disease (stents) GI Gastroesophageal Reflux Disease Metabolic Hyperlipidemia Anesthetic Plan ASA status: 3 Anesthesia: General Risk of > 500 ml blood loss (7ml/kg in children): No Medications/Allergies Home Medications Medication Instructions Recorded Confirmed Last Taken Type mupirocin 2 % topical ointment 1 applic topical BID PRN Itching 08/23/22 05/12/23 05/11/23 History buprenorphine HCl 2 mg sublingual 2 mg sublingual DAILY 11/29/22 05/12/23 05/11/23 History tablet clopidogrel 75 mg tablet 75 mg PO DAILY 90 days #90 tabs 11/29/22 05/12/23 05/11/23 Rx nitroglycerin 0.4 mg sublingual 0.4 mg sublingual Q5M PRN chest 11/29/22 05/12/23 05/12/23 Rx tablet (Nitrostat) pain #30 tabs celecoxib 50 mg capsule (Celebrex) 50 mg PO BID 12/08/22 05/12/23 05/11/23 History cyclobenzaprine 5 mg tablet 1 mg PO TID PRN Allergic Reaction 12/08/22 05/12/23 05/11/23 History ranolazine 500 mg tablet,extended 500 mg PO BID #60 tabs 12/21/22 05/12/23 05/11/23 Rx release,12 hr (Ranexa) ondansetron 4 mg disintegrating 4 mg PO Q8H PRN nausea and 01/30/23 05/12/23 0 05/12/23 Rx tablet vomiting #10 tabs mometasone-formoterol HFA 50 mcg-5 2 puff inhalation Q12H #13 grams 02/20/23 05/12/23 05/14/23 23:59 Rx mcg/actuation aerosol inhaler (Dulera) hydrocortisone 0.5 % topical cream 1 applic topical BID PRN skin 02/22/23 05/12/23 05/11/23 Rx irritation #28.4 grams ketoconazole 2 % topical cream 1 applic topical DAILY PRN rash 02/22/23 05/12/23 05/11/23 Rx #30 grams ezetimibe 10 mg tablet 10 mg PO DAILY #30 tabs 02/28/23 05/12/23 05/11/23 Rx Auto titrating CPAP #1 ea 03/09/23 05/03/23 Unknown Rx pantoprazole 40 mg tablet,delayed 40 mg PO DAILY #90 tabs 03/23/23 05/12/23 05/11/23 Rx release (Protonix) Allergies Allergy/AdvReac Type Severity Reaction Status Date / Time [id number]-[id number] Reductase Allergy Severe Unresponsiv Verified 05/03/23 13:11 Inhibitor e droperidol Allergy Unknown Unknown Verified 05/03/23 13:11 duloxetine [From Cymbalta] Allergy Unknown Unknown Verified 05/03/23 13:11 gabapentin [From Neurontin] Allergy Unknown Unknown Verified 05/03/23 13:11 paroxetine [From Paxil] Allergy Unknown Unknown Verified 05/03/23 13:11 pregabalin [From Lyrica] Allergy Unknown Unknown Verified 05/03/23 13:11 sertraline [From Zoloft] Allergy Unknown Unknown Verified 05/03/23 13:11 Penicillins Allergy ALGY-Hives Verified 05/03/23 13:11 [facility] Anesthesia Medical History Arteriosclerotic heart disease (ASHD) Cyst near coccyx Depression Esophageal diverticulum Fibromyalgia Ganglion cyst of left groin GERD (gastroesophageal reflux disease) Hepatitis B Insomnia, unspecified Mixed hyperlipidemia Paget disease of bone Polyneuropathy, unspecified Unspecified osteoarthritis, unspecified site Surgical History Hx of angioplasty Hx of appendectomy Hx of colonoscopy (~01/2019) Family History Family/Other CAD (coronary artery disease) Anxiety Other Hyperlipidemia Hypertension Denies family history of Diabetes Clotting disorder Dementia Chronic kidney disease (CKD) Anesthesia complication Bleeding disorder Lung disease Cancer Stroke Social History Smoking and tobacco status: former smoker Quit status (tobacco): has quit using tobacco Year quit tobacco: 2016 Former quit date comment: quit chewing Alcohol intake: current Alcohol intake frequency: few times a week Substance/Drug Use: never Lives independently: Yes Household members: spouse Marital status: Current occupational status: unemployed Current gender identity: Male Data Anesthesia Cardiac Studies: Sestamibi Stress Test (Cardiology) 09/09
[2023-05-15] MEDS: sodium chloride 0.9% 1,000 ML 30 ML IV (06:49)
--- NOTE | 2023-05-15 06:59 | PM.HP ---
Providers/Chief Complaint Primary Care Provider: Alcides Gonzalez MD Chief Complaint: R10.9, R19.09 History of Present Illness Rocky Jaeger Jr is a 43 year old male Medications/Allergies Home Medications Medication Instructions Recorded Confirmed Last Taken Type mupirocin 2 % topical ointment 1 applic topical BID PRN Itching 08/23/22 05/12/23 05/11/23 History buprenorphine HCl 2 mg sublingual 2 mg sublingual DAILY 11/29/22 05/12/23 05/11/23 History tablet clopidogrel 75 mg tablet 75 mg PO DAILY 90 days #90 tabs 11/29/22 05/12/23 05/11/23 Rx nitroglycerin 0.4 mg sublingual 0.4 mg sublingual Q5M PRN chest 11/29/22 05/12/23 05/12/23 Rx tablet (Nitrostat) pain #30 tabs celecoxib 50 mg capsule (Celebrex) 50 mg PO BID 12/08/22 05/12/23 05/11/23 History cyclobenzaprine 5 mg tablet 1 mg PO TID PRN Allergic Reaction 12/08/22 05/12/23 05/11/23 History ranolazine 500 mg tablet,extended 500 mg PO BID #60 tabs 12/21/22 05/12/23 05/11/23 Rx release,12 hr (Ranexa) ondansetron 4 mg disintegrating 4 mg PO Q8H PRN nausea and 01/30/23 05/12/23 05/12/23 Rx tablet vomiting #10 tabs mometasone-formoterol HFA 50 mcg-5 2 puff inhalation Q12H #13 grams 02/20/23 05/12/23 05/14/23 23:59 Rx mcg/actuation aerosol inhaler (Dulera) hydrocortisone 0.5 % topical cream 1 applic topical BID PRN skin 02/22/23 05/12/23 05/11/23 Rx irritation #28.4 grams ketoconazole 2 % topical cream 1 applic topical DAILY PRN rash 02/22/23 05/12/23 05/11/23 Rx #30 grams ezetimibe 10 mg tablet 10 mg PO DAILY #30 tabs 02/28/23 05/12/23 05/11/23 Rx Auto titrating CPAP #1 ea 03/09/23 05/03/23 Unknown Rx pantoprazole 40 mg tablet,delayed 40 mg PO DAILY #90 tabs 03/23/23 05/12/23 05/11/23 Rx release (Protonix) Allergies Allergy/AdvReac Type Severity Reaction Status Date / Time [id number]-[id number]-YzU Reductase Allergy Severe Unresponsiv Verified 05/03/23 13:11 Inhibitor e droperidol Allergy Unknown Unknown Verified 05/03/23 13:11 duloxetine [From Cymbalta] Allergy Unknown Unknown Verified 05/03/23 13:11 gabapentin [From Neurontin] Allergy Unknown Unknown Verified 05/03/23 13:11 paroxetine [From Paxil] Allergy Unknown Unknown Verified 05/03/23 13:11 pregabalin [From Lyrica] Allergy Unknown Unknown Verified 05/03/23 13:11 sertraline [From Zoloft] Allergy Unknown Unknown Verified 05/03/23 13:11 Penicillins Allergy ALGY-Hives Verified 05/03/23 13:11 PFSH Acute PFSH: Medical History Arteriosclerotic heart disease (ASHD) Cyst near coccyx Depression Esophageal diverticulum Fibromyalgia Ganglion cyst of left groin GERD (gastroesophageal reflux disease) Hepatitis B Insomnia, unspecified Mixed hyperlipidemia Paget disease of bone Polyneuropathy, unspecified Unspecified osteoarthritis, unspecified site Surgical History Hx of angioplasty Hx of appendectomy Hx of colonoscopy (~01/2019) Family History Family/Other CAD (coronary artery disease) Anxiety Other Hyperlipidemia Hypertension Denies family history of Diabetes Clotting disorder Dementia Chronic kidney disease (CKD) Anesthesia complication Bleeding disorder Lung disease Cancer Stroke Social History Smoking and tobacco status: former smoker Quit status (tobacco): has quit using tobacco Year quit tobacco: 2016 Former quit date comment: quit chewing Alcohol intake: current Alcohol intake frequency: few times a week Substance/Drug Use: never Lives independently: Yes Household members: spouse Marital status: Current occupational status: unemployed Current gender identity: Male Vitals/I&O/Wt Last Vital Signs Temp 97.4 F L 05/15/23 06:11 Pulse 70 05/15/23 06:11 Resp 18 05/15/23 06:11 BP 146/93 05/15/23 06:11 Pulse Ox 96 05/15/23 06:11 O2 Del Method Room Air 05/15/23 06:27 A&P Assessment and plan (1) Abdominal pain: Plan Patient with right upper quadrant syndrome Laparoscopic cholecystectomy The risks and benefits of the procedure, including but not limited to, bleeding, infection, scar, numbness, pain, damage to surrounding structures, damage to common bile duct requiring additional surgery, conversion to an open procedure, were explained to the patient. He is understanding of the risks and wishes to proceed. Attestations Medical Necessity Statement*: Home Coding Level of Care Code Acute Code for Chg Fwd Diagnoses Abdominal pain R10.9
[2023-05-15] MEDS: levofloxacin-dextrose 5 % 500 MG/100 ML PREMIX 100 MG IV (07:15)
[2023-05-15] MEDS: lidocaine-epi 2% 20 mL INJ INJECTION (07:35)
--- NOTE | 2023-05-15 08:15 | P.OP_ITS ---
Operative Report Date of procedure: May 15, 2023 Pre-op diagnosis: Right upper quadrant syndrome Subcutaneous mass left groin Post-op diagnosis: same Procedure done: Laparoscopic cholecystectomy Excision of subcutaneous mass left groin Implants: None Specimens removed/disposition: Gallbladder Skin ellipse with subcutaneous mass left groin Surgeon: Dr. Tommy Soto DO Anesthesia: General Estimated blood loss (mL): 5 Complications: None apparent Brief History: This very pleasant 43-year-old gentleman who had an extensive work-up for abdominal pain. Ultimately right upper quadrant syndrome was diagnosed. Laparoscopic cholecystectomy was indicated. The risk and benefits of the procedure, especially the possibility of cholecystectomy not relieving his symptoms, were explained to the patient. He was understanding the risks and wished to proceed Procedure: Patient was wheeled into the operative room and placed on the OR table in a supine position. Abdomen was inspected prepped and draped in usual sterile fashion. Time-out was performed and all present were in agreement. A 15 blade scalp was used to make a stab incision in the left upper quadrant and intra- abdominal insufflation was achieved using a Veress needle. After localizing the tissue incisions were made and a 5 millimeter trocar was placed into the umbilicus as well as 2 in the right upper quadrant. A 12 millimeter trocar was placed in the epigastrium. Gallbladder was grasped and elevated. The triangle of Calot was carefully dissected using blunt dissection and electrocautery until the triangle of Calot clearly identified. The cystic duct was clipped proximally and double clipped distally. The duct was then ligated proximally. The cystic artery was doubly clipped and ligated. The gallbladder was then removed from the liver bed using electrocautery. The gallbladder was removed from the abdomen using an Endo-Catch bag through the epigastric incision. The liver bed was inspected and no bleeding was seen. The abdomen was irrigated and suctioned. All ports removed. Skin was washed and dried. Incisions were closed with 3-0 and 4-O Vicryl in a subcuticular interrupted fashion. Skin glue was applied. Patient tolerated the procedure well. The left groin was inspected prepped and draped in the usual sterile fashion. 2% lidocaine with epinephrine was used to anesthetize the area around the lesion. A 15 blade scalpel then used to make an elliptical excision measuring 2.5 centimeters in length. Incision was carried down to subcutaneous tissue and the specimen was passed off. Specimen measured 2.5 cm in greatest diameter. 3- 0 Vicryl was used to approximate the dermis, and 4-0 Monocryl was use to close the skin in a running subcuticular fashion. Hemostasis was noted. Skin glue was used. Patient tolerated the procedure well.
--- NOTE | 2023-05-15 08:32 | PC.NURSE ---
Pt arrived to PACU, resting comfortably, denies any pain or nausea at this time. Dermabond to abdomen and groin C/D/I. Able to move all extremities.
[2023-05-15] MEDS: fentaNYL 50 mcg/mL INJ 2mL IVP ×2 (08:40→08:50)
[2023-05-15] MEDS: HYDROcodone-acetaminophen 10-325 mg Tablet 1 TAB PO (09:12)
[2023-05-15] MEDS: HYDROmorphone 1 mg/mL INJ 1 mL 0.5 MG IVP ×2 (09:30→10:08)
[2023-05-15] MEDS: acetaminophen 325 mg Tablet PO (10:00)
--- NOTE | 2023-05-15 10:55 | PC.NURSE ---
Bleeding noted at midline laproscopic site and left groin incision. Dr. Soto notifed, orders to place pressure dressing on both site given. 2x2 gauze and tegaderm applied to both site. Instructions give to patient to keep dry and seek medical attention should sites continue to bleed.
== END 2023-05-15 10:48 | disposition home or self-care (01) ==
PROVIDERS: PCP Family Medicine; Visit Provider Surgery
PROC: 0FT44ZZ Resection of Gallbladder, Percutaneous Endoscopic Approach (ICD-10-PCS; CPT 47562; principal; 2023-05-15 07:00)
PROC: (CPT 11403; 2023-05-15 07:00)
DX: K81.1 Chronic cholecystitis (principal); J45.909 Unspecified asthma, uncomplicated; G47.30 Sleep apnea, unspecified; I25.10 Atherosclerotic heart disease of native coronary artery without angina pectoris; Z95.5 Presence of coronary angioplasty implant and graft; K21.9 Gastro-esophageal reflux disease without esophagitis; E78.2 Mixed hyperlipidemia; Z79.02 Long term (current) use of antithrombotics/antiplatelets; Z87.891 Personal history of nicotine dependence; R22.2 Localized swelling, mass and lump, trunk
CPT/HCPCS: 11403; 47562; 88304; 88307; J1100; J1170; J1956; J2250; J2405; J2704; J2710; J3010; J3490; J7030

== ENCOUNTER 2023-05-30 15:22 | Outpatient (CLI) | payer MEDICARE, MEDICAID, SELFPAY ==
--- NOTE | 2023-05-30 15:28 | CTR_ITS ---
PROCEDURE INFORMATION: Exam: CT Chest Without Contrast; Diagnostic Exam date and time: 05/30/2023 3:42 PM Age: 43 years old Clinical indication: Shortness of breath; Prior surgery; Surgery date: 6+ months; Surgery type: Gb; Additional info: High resolution TECHNIQUE: Imaging protocol: Diagnostic computed tomography of the chest without contrast. Radiation optimization: All CT scans at this facility use at least one of these dose optimization techniques: automated exposure control; mA and/or kV adjustment per patient size (includes targeted exams where dose is matched to clinical indication); or iterative reconstruction. REPORTING DATA: Count of CT and Cardiac NM exams in prior 12 months: This patient has received [address] and 0 known cardiac nuclear medicine studies in the 12 months prior to the current study. COMPARISON: CR XR chest 2V* [id number] 11/30/2022 1:54 PM RADIATION DOSE METRICS: Total DLP (mGy-cm): 1285.07 FINDINGS: Lungs: Minimal bilateral dependent atelectasis. Pleural spaces: Unremarkable. No pneumothorax. No pleural effusion. Heart: Cardiomegaly. Coronary arteries: Coronary artery atherosclerotic calcifications. Lymph nodes: Unremarkable. No enlarged lymph nodes. Vasculature: Ascending thoracic aorta dilated 2 3.3 cm. Gallbladder and bile ducts: Cholecystectomy. Bones/joints: Cortical irregularity of left posterior ribs numbers 2, 3, 4 and 5 and the left scapula, may reflect posttraumatic changes. Soft tissues: Unremarkable. CT/CT chest wo con [id number] IMPRESSION: 1. Cardiomegaly. 2. Coronary artery atherosclerotic calcifications. 3. Ascending thoracic aorta dilated to 3.3 cm. 4. Cholecystectomy. 5. Cortical irregularity of left posterior ribs numbers 2, 3, 4 and 5 and the left scapula, may reflect posttraumatic changes. 6. Minimal bilateral dependent atelectasis.
== END 2023-05-30 15:23 | disposition home or self-care (01) ==
LOC: RAD 15:23
PROVIDERS: PCP Family Medicine; Visit Provider Internal Medicine Pulmonary Disease
DX: I25.10 Atherosclerotic heart disease of native coronary artery without angina pectoris (principal); J82.83 Eosinophilic asthma; R04.2 Hemoptysis; R06.00 Dyspnea, unspecified; R06.83 Snoring
CPT/HCPCS: 71250; 99024

== ENCOUNTER 2023-07-03 11:58 | Emergency (ER) | payer MEDICARE, MEDICAID, SELFPAY ==
[2023-07-03 12:08] VITALS: BP 135/88; PULSE 73; RESP 18; TEMP 36.6; O2SAT 95; BMI 28.0
--- NOTE | 2023-07-03 14:10 | XR_ITS ---
WS: [id number] Exam: XR knee RT 3V* [id number] Date/Time of Exam: 07/03/2023 2:10 PM Reason For Exam: injury There is a questionable nondisplaced hairline fracture of the proximal fibula. No other fractures. Th e joint compartments are well-maintained. No joint effusion seen. IMPRESSION: 1. Questionable hairline fracture through the proximal fibula. No other sign of fracture. Recommendations: A follow-up study in 7 to 10 days might be helpful for confirmation if thought to be clinically warranted.
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
--- NOTE | 2023-07-03 15:30 | DCPLANNER ---
Addendum entered by Stephanie Zarate 07/04/23 08:38: Patient has a follow up appointment scheduled for Wednesday, July 05, 2023 at 3:[address] Jimenez at ortho. Original Note: consulting sales manager had message to schedule a follow up appointment for patient with ortho. consulting sales manager sent patients information to the front office staff at ortho. Patients information will be printed and reviewed. Clinic will call patient with appointment information.
== END 2023-07-03 14:54 | disposition home or self-care (01) ==
PROVIDERS: Emergency Provider Physician Assistant; PCP Family Medicine
DX: S82.831A Other fracture of upper and lower end of right fibula, initial encounter for closed fracture (principal); Z79.02 Long term (current) use of antithrombotics/antiplatelets; Z87.891 Personal history of nicotine dependence; Z86.19 Personal history of other infectious and parasitic diseases; E78.2 Mixed hyperlipidemia; V20.49XA Other motorcycle driver injured in collision with pedestrian or animal in traffic accident, initial encounter
CPT/HCPCS: 29530; 73562; 99283; E0114

== ENCOUNTER 2023-07-05 15:56 | Outpatient (CLI) | payer MEDICARE, MEDICAID, SELFPAY | END 2023-07-05 15:57 | disposition home or self-care (01) | LOC: SPT 15:57 | PROVIDERS: PCP Family Medicine; Visit Provider Specialist | DX: Z46.89 Encounter for fitting and adjustment of other specified devices (principal); S82.831A Other fracture of upper and lower end of right fibula, initial encounter for closed fracture; V20.49XA Other motorcycle driver injured in collision with pedestrian or animal in traffic accident, initial encounter | CPT/HCPCS: 27780; 97760; 99204; L1812 ==

== ENCOUNTER 2023-07-18 09:37 | Outpatient (CLI) | payer MEDICARE, MEDICAID, SELFPAY ==
[2023-07-18 10:34] LABS: Add Urine Microscopic? YES; Bilirubin Urine 1+ (Negative); Blood Urine Trace (Negative); Glucose Urine UA Norm (Normal); Ketones Urine 1+ (Negative); Leukocyte Esterase Urine Negative (Negative); Nitrate Urine Negative (Negative); Protein Urine 1+ (Negative); Specific Gravity, Urine 1.025 (1.005-1.030); Urine Appearance Cloudy (CLEAR); Urine Color Yellow (Yellow); Urobilinogen Urine 1 mg/dL (Negative); pH Urine 5 (5-7)
[2023-07-18 10:42] LABS: Add Urine Culture? No; Amorphous Sediment Urine 2+ /hpf; Bacteria Urine TRACE /hpf; Mucus Urine TRACE /hpf; RBC Urine 0-4 /hpf (0-2); Squamous Epithelial Cell Urine RARE /hpf (0-5); WBC Urine RARE /hpf (0-5)
[2023-07-18 11:10] LABS: Erythrocyte Sedimentation Rate 10 mm/hr (0-10)
[2023-07-18 11:31] LABS: C Reactive Protein 3.6 mg/L (0.0-4.9)
[2023-07-18 12:47] LABS: Hepatitis B Core AB, Total Reactive (Nonreactive); Hepatitis C Virus Antibody Reactive (Nonreactive)
[2023-07-18 12:51] LABS: Hepatitis B Surface Antigen Reactive (Nonreactive)
[2023-07-19 13:33] LABS: CENTROMERE B ANTIBODY <1.0 NEG AI (<1.0 NEG); JO-1 ANTIBODY <1.0 NEG AI (<1.0 NEG); RNP ANTIBODY <1.0 NEG AI (<1.0 NEG); SCL-70 ANTIBODY <1.0 NEG AI (<1.0 NEG); SJOGREN'S ANTIBODY (SS-A) <1.0 NEG AI (<1.0 NEG); SM ANTIBODY <1.0 NEG AI (<1.0 NEG); SS-B <1.0 NEG AI (<1.0 NEG)
[2023-07-19 13:44] LABS: Cyclic Citrullinated Peptide <16 UNITS
[2023-07-19 20:15] LABS: PTT-LA-Screen 37 sec (< OR = 40)
[2023-07-20 07:53] LABS: THYROID PEROXIDASE ANTIBODIES <1 IU/mL (<9)
[2023-07-20 11:54] LABS: ANA PATTERN Nuclear, Homogeneous; ANA SCREEN, IFA POSITIVE (NEGATIVE); ANA TITER 1:40 titer
[2023-07-20 15:39] LABS: HEP C RNA Viral Load Quant <1.18 NOT DETECTED Log IU/mL (NOT DETECTED); HEP C RNA Viral Load Quant <15 NOT DETECTED IU/mL (NOT DETECTED)
[2023-07-21 13:26] LABS: COMPLEMENT, TOTAL (CH50) 58 U/mL (31-60)
[2023-07-21 16:20] LABS: COMPLEMENT COMPONENT C3C 120 mg/dL (82-185); COMPLEMENT COMPONENT C4C 32 mg/dL (15-53)
[2023-07-25 02:29] LABS: Beta 2 Glycoprotein IGA <2.0 U/mL (<20.0); Beta 2 Glycoprotein IGG <2.0 U/mL (<20.0); Beta 2 Glycoprotein IGM <2.0 U/mL (<20.0)
[2023-08-03 16:09] LABS: DNA AB (DS) CRITHIDIA,IFA POSITIVE (NEGATIVE)
== END 2023-07-18 09:38 | disposition home or self-care (01) ==
LOC: LAB 09:45
PROVIDERS: PCP Family Medicine; Visit Provider Internal Medicine
DX: M32.9 Systemic lupus erythematosus, unspecified (principal); J82.83 Eosinophilic asthma; R76.8 Other specified abnormal immunological findings in serum; M25.50 Pain in unspecified joint; Z79.899 Other long term (current) drug therapy
CPT/HCPCS: 36415; 81001; 85613; 85651; 85730; 86140; 86146; 86160; 86162; 86200; 86235; 86255; 86376; 86431; 86704; 86803; 87340; 87522; 99204

== ENCOUNTER → 2025-03-07 10:18 | Outpatient (BNVA) | payer MEDICAID, SELFPAY | PROVIDERS: PCP Family Medicine; Visit Provider Nurse Practitioner | DX: J02.9 Acute pharyngitis, unspecified (principal) | CPT/HCPCS: 87070; 87880 ==

== ENCOUNTER 2025-03-18 08:48 | Outpatient (CLI) | payer SELFPAY ==
[2025-03-18 09:45] LABS: Basophils # 0.1 10^3/uL (0.0-0.1); Basophils % 0.7 %; Eosinophils # 0.1 10^3/uL (0.0-0.8); Eosinophils % 1.8 %; Lymphocytes # 2.2 10^3/uL (0.8-4.8); Mean Corpuscular HGB Conc 33.8 g/dL (30-55); Mean Corpuscular Hemoglobin 31.7 pg (27-33); Mean Corpuscular Volume 93.8 fl (82-101); Mean Platelet Volume 9.3 fL (7.4-10.4); Monocytes # 0.7 10^3/uL (0.2-0.9); Monocytes % 9.6 %; Neutrophils % 56.2 %; Nucleated Red Blood Cells % 0 %; Platelet Count 242 10^3/cmm (157-399); Red Blood Count 5.01 10^6/uL (3.85-5.65); Red Cell Distribution Width 11.9 % (12.1-15.1); White Blood Count 7.12 10^3/uL (3.29-11.43)
[2025-03-18 09:47] LABS: Erythrocyte Sedimentation Rate 17 mm/hr (0-10)
[2025-03-18 10:24] LABS: Alanine Aminotransferase 99 U/L (0-41); Albumin Level 4.2 g/dL (3.5-5.2); Alkaline Phosphatase 113 U/L (40-130); Anion Gap 15.3 (5-19); Aspartate Amino Transferase 54 U/L (0-40); Blood Urea Nitrogen 16 mg/dL (6-20); Calcium 9.5 mg/dL (8.5-10.5); Carbon Dioxide 24 mmol/L (22-29); Chloride 103 mmol/L (98-107); Chol HDL Ratio 8.02 mg/dL (1.0-5.00); Cholesterol 361 mg/dL (0-200); Globulin 3.8 g/dL (1.3-4.6); Glomerular Filtration Rate 121.4 mL/min (90-130); Glucose 100 mg/dL (65-115); HDL Cholesterol 45 mg/dL (60-100); LDL Cholesterol Calculated 290 mg/dL (50-129); LDL HDL Ratio 6.44 RATIO (0.00-3.22); Osmolality Calculated 287 mOsm/kg (285-295); Potassium 4.3 mmol/L (3.5-5.1); Sodium 138 mmol/L (136-145); Testosterone Total 793.2 ng/dL (249-836); Total Bilirubin 0.4 mg/dL (0.15-1.2); Triglycerides 132 mg/dL (0-150)
[2025-03-18 11:32] LABS: Hepatitis A Antibody IgM Non-Reactive (Nonreactive); Hepatitis B Surface Antigen Reactive (Nonreactive)
[2025-03-18 11:33] LABS: Hepatitis B Core IgM Non-Reactive (Nonreactive); Hepatitis B Surface AB < 3.5 (11.5-1000); Hepatitis C Virus Antibody Reactive (Nonreactive)
[2025-03-18 11:52] LABS: Hepatitis B Core AB, Total Reactive (Nonreactive)
[2025-03-19 08:54] LABS: SS A Ro Sjogrens Antibody <1.0 NEG AI (<1.0 NEG)
[2025-03-19 14:10] LABS: SCL 70 <1.0 NEG AI (<1.0 NEG); SS-B/LA IGG <1.0 NEG AI (<1.0 NEG)
== END 2025-03-18 08:49 | disposition home or self-care (01) ==
PROVIDERS: PCP Family Medicine; Visit Provider Family Medicine
DX: M19.90 Unspecified osteoarthritis, unspecified site (principal); I25.10 Atherosclerotic heart disease of native coronary artery without angina pectoris; B19.20 Unspecified viral hepatitis C without hepatic coma
CPT/HCPCS: 36415; 80053; 80061; 80074; 84403; 84439; 84443; 85025; 85651; 86038; 86140; 86200; 86235; 86431; 86705; 86706; 87340; 87522

== ENCOUNTER → 2025-04-22 09:37 | Outpatient (BNVA) | payer MEDICARE, SELFPAY | PROVIDERS: PCP Family Medicine; Visit Provider Student in an Organized Health Care Education/Training Program | DX: B19.10 Unspecified viral hepatitis B without hepatic coma (principal); B19.20 Unspecified viral hepatitis C without hepatic coma; Z11.3 Encounter for screening for infections with a predominantly sexual mode of transmission | CPT/HCPCS: 36415; 80074; 81001; 81596; 86225; 86707; 87350; 87517; 87522; 87806; 99205 ==

== ENCOUNTER 2025-05-05 07:17 | Outpatient (CLI) | payer MEDICARE, SELFPAY ==
--- NOTE | 2025-05-05 07:30 | US_ITS ---
WS: [id number] RIGHT UPPER QUADRANT ULTRASOUND HISTORY: hepatitis B, chronic, assess for cirrhosis COMPARISON: 02/14/2023 Liver: 13.7 cm in length. Normal size liver and echogenicity. No bile duct dilatation or mass. Portal Vein: Normal hepatopetal flow with monophasic waveform. Gallbladder: Prior cholecystectomy. CBD: 0.3 cm Pancreas: Normal size and echogenicity. Right kidney: 11.4 cm in length. Normal size and echogenicity. No hydronephrosis or mass. Aorta and IVC: Unremarkable abdominal aorta and IVC. No ascites. US/US liver [id number] IMPRESSION: 1. Prior cholecystectomy. 2. Negative liver.
== END 2025-05-05 07:18 | disposition home or self-care (01) ==
LOC: RAD 07:22
PROVIDERS: PCP Family Medicine; Visit Provider Student in an Organized Health Care Education/Training Program
DX: B19.10 Unspecified viral hepatitis B without hepatic coma (principal); Z90.49 Acquired absence of other specified parts of digestive tract
CPT/HCPCS: 76705

== ENCOUNTER → 2025-06-11 10:03 | Outpatient (BNVA) | payer MEDICARE, SELFPAY | PROVIDERS: PCP Family Medicine; Visit Provider Internal Medicine Cardiovascular Disease | DX: I25.10 Atherosclerotic heart disease of native coronary artery without angina pectoris (principal); R07.9 Chest pain, unspecified; I10 Essential (primary) hypertension; E78.5 Hyperlipidemia, unspecified; Z87.898 Personal history of other specified conditions | CPT/HCPCS: 93005; 99204 ==

== ENCOUNTER → 2025-07-01 11:03 | Outpatient (BNVA) | payer MEDICARE, SELFPAY | PROVIDERS: PCP Family Medicine; Visit Provider Student in an Organized Health Care Education/Training Program | DX: B19.10 Unspecified viral hepatitis B without hepatic coma (principal) | CPT/HCPCS: 36415; 80053; 85025 ==

== ENCOUNTER 2025-07-09 13:24 | Outpatient (CLI) | payer MEDICARE, SELFPAY ==
--- NOTE | 2025-07-09 14:00 | CT_ITS ---
WS: [id number] CT ABDOMEN AND PELVIS WITH CONTRAST HISTORY: RLQ pain TECHNIQUE: Imaging performed of the abdomen and pelvis with IV contrast. Single phase imaging of the abdomen. Coronal and sagittal reformats are submitted. All CT scans at [facility] use at least one of these dose optimization techniques: automated exposure control; mA and/or kV adjustment per patient size (includes targeted exams where dose is matched to clinical indication); or iterative reconstruction. IV CONTRAST: Omnipaque 350; 100 mL IV. Oral contrast: No DLP: 410.06 mGy.cm COMPARISON: 01/30/2023, Lower thorax: Calcified granuloma medial LEFT lower lobe. Normal size heart. Very small hiatal hernia. Liver/biliary system: Normal size with no intrahepatic dilatation. Gallbladder: Prior cholecystectomy. Normal common bile duct. Pancreas: Normal size pancreas and pancreatic duct. No adjacent inflammation. Spleen: Normal spleen with granulomata. Adrenal glands: Normal. Right kidney: Normal size kidney with no obstruction. Very tiny cortical hypodensities are too small to characterize. Left kidney: Normal. Aorta: Mild atherosclerosis with no aneurysm. Lymphadenopathy: None. Free fluid: None. GI tract: Normally distended stomach. No small bowel obstruction. Mild constipation. No significant diverticular disease. No colitis. Abdominal wall: Fat containing umbilical hernia. Pelvis: No free fluid or adenopathy within the pelvis. Urinary bladder is not distended. No inguinal hernias. Bones: Exostosis of the LEFT iliac crest. This exostosis has been present on multiple prior studies dating back several years. CT/CT abdomen pelvis w con* [id number] IMPRESSION: 1. No acute abdominal or pelvic abnormalities. 2. Prior cholecystectomy. 3. No renal obstruction. 4. Prior appendectomy.
--- NOTE | 2025-07-09 14:00 | CT_ITS ---
WS: [id number] CT MYELOGRAM LUMBAR SPINE HISTORY: assess for stenosis, disc prolpase TECHNIQUE: Contiguous 2.5 mm axial imaging performed from T12 through the mid sacral level. Bone and soft tissue windows reviewed. Sagittal and coronal reformats are submitted and reviewed. DLP: 453.[address] scans at [facility] use at least one of these dose optimization techniques: automated exposure control; mA and/or kV adjustment per patient size (includes targeted exams where dose is matched to clinical indication); or iterative reconstruction. COMPARISON: 08/06/2010 Normal lumbar alignment. Disc spaces and vertebral body heights are well- preserved. No pars defects. No vertebral body fracture. L1-L2: Normal. L2-L3: Very small RIGHT foraminal disc protrusion. No contact on the nerve root. L3-L4: Far RIGHT lateral osteophyte with mild contact on the RIGHT exiting L3 nerve root. There is also mild associated disc protrusion. Mild RIGHT foraminal stenosis. L4-L5: Mild facet and ligamentum flavum hypertrophy. L5-S1: Tiny central disc protrusion. Very mild contact on the S1 nerve roots. No foraminal stenosis. Scattered plaque in the aorta. Paravertebral soft tissues are negative. CT/CT lumbar spine w con [id number] IMPRESSION: 1. No acute lumbar spine fracture or high-grade central stenosis. 2. RIGHT foraminal disc osteophyte at L3-4 with contact on the exiting RIGHT L 3 nerve root. 3. Minimal disc contact on the S1 nerve roots.
[2025-07-09] MEDS: iohexol 350 mg/mL 500 mL Btl (per mL) IV ×2 (14:32)
== END 2025-07-09 13:25 | disposition home or self-care (01) ==
LOC: RAD 13:25
PROVIDERS: PCP Family Medicine; Visit Provider Student in an Organized Health Care Education/Training Program
DX: B19.10 Unspecified viral hepatitis B without hepatic coma (principal); M19.90 Unspecified osteoarthritis, unspecified site; M54.50 Low back pain, unspecified; R10.9 Unspecified abdominal pain
CPT/HCPCS: 72132; 74177

== ENCOUNTER → 2025-09-29 09:54 | Outpatient (BNVA) | payer MEDICARE, SELFPAY | PROVIDERS: PCP Family Medicine; Referring Provider Student in an Organized Health Care Education/Training Program; Visit Provider Internal Medicine Rheumatology | DX: R76.89 Other specified abnormal immunological findings in serum (principal); B19.10 Unspecified viral hepatitis B without hepatic coma; M13.0 Polyarthritis, unspecified; R10.30 Lower abdominal pain, unspecified; G89.29 Other chronic pain; M32.9 Systemic lupus erythematosus, unspecified; Z12.5 Encounter for screening for malignant neoplasm of prostate; M25.50 Pain in unspecified joint | CPT/HCPCS: 36415; 80076; 82565; 83520; 85025; 85651; 86140; 86480; 87517; 99215; G0103 ==